=== PATIENT | female | born 1985 | race Caucasian/White ===

== ENCOUNTER 2016-11-17 16:10 | Emergency (ER) | payer OTHER ==
[~2016-11-17 16:10] MED LIST: ANAPROX DS550 MG PO; PRENATAL1 TA7 PO
[2016-11-17 17:20] LABS: BILIRUBIN NEGATIVE (NEGATIVE); BLOOD 3+ (NEGATIVE); CLARITY SL CLOUDY (CLEAR); COLOR YELLOW (YELLOW); GLUCOSE NEGATIVE (NEGATIVE); KETONE 1+ (NEGATIVE); LEUKO ESTERASE 1+ (NEGATIVE); NITRITE NEGATIVE (NEGATIVE); PROTEIN TRACE (NEGATIVE); SPECIFIC GRAVITY 1.025 (1.005-1.030); UROBILINOGEN 0.2 E.U./dl (0.2-1.0)
[2016-11-17 17:31] LABS: MUCOUS TRACE; RBC 21-30 rbc/hpf (0-2); URINE REFLEX COMMENT YES (NO); WBC 31-40 wbc/hpf (0-5)
[2016-11-17 18:09] LABS: HEMATOCRIT 38.4 % (37.0-47.0); MEAN CELL VOLUME 86.5 fl (81.0-99.0); MEAN CORPUSCULAR HGB 29.3 pg (27.0-31.0); MEAN CORPUSCULAR HGB CONC 33.9 g/dl (33.0-37.0); MEAN PLATELET VOLUME 9.5 fl (9.6-12.3); PLATELET COUNT AUTOMATED 449 10*3/uL (130-400); RED BLOOD COUNT 4.44 10*6/uL (4.10-5.10); RED CELL DISTRI WIDTH 13.9 % (0-14.5)
[2016-11-17 18:28] LABS: ALBUMIN 2.9 gm/dl (3.1-4.5); ALKALINE PHOSPHATASE 247 U/L (45-117); BILIRUBIN, TOTAL 0.3 mg/dl (0.2-1.0); BUN 15 mg/dl (7-24); CARBON DIOXIDE 17 mmol/L (21-32); CHLORIDE 108 mmol/L (98-107); EST GLOM FILT AFRICAN AMERICAN > 60 ml/min; GLUCOSE 98 mg/dL (65-99); SGOT/AST 12 IU/L (3-35); SGPT/ALT 18 U/L (12-78); SODIUM 138 mmol/L (136-145); TOTAL PROTEIN 7.4 gm/dL (6.4-8.2)
[2016-11-17 18:29] LABS: LYMPHOCYTE # 1.1 10*3/uL (1.3-4.4); NEUTROPHIL # 26.9 10*3/uL (2.3-7.9); NEUTROPHILS 96 % (47-73); TOTAL CELLS COUNTED 100 #CELLS
[2016-11-17 18:30] LABS: PLATELET SUFFICIENCY HIGH (NORMAL)
== END 2016-11-17 21:55 | disposition short-term general hospital (02) ==
LOC: ED 16:10
PROVIDERS: Nurse Practitioner Family
DX: O60.00 Preterm labor without delivery, unspecified trimester (principal)

== ENCOUNTER 2017-10-02 12:40 | Inpatient (IN) | payer OTHER ==
[~2017-10-02] VITALS: Ht 152.4 cm; Wt 80.3 kg
--- NOTE | ~2017-10-02 | PR ---
[place], [place] PROGRESS NOTE NAME: DAVID CRUZ UNIT #: [id number] ROOM: 401 DOCTOR: TAPAN FLOWER MD BIRTHDATE: [birth year] DOS: 10/04/2017 SUBJECTIVE: She has been noted comfortable at this time without any distress at this time. Shortness of breath of the patient has been improving. Coughing has been decreased as well. She was continued on antibiotic. The patient has IV cefepime and the Zithromax as well. She has not been noted symptoms of chest pain or any abdominal pain. OBJECTIVE: VITAL SIGNS: For the patient, which has been recorded was noted with a temperature as normal. Respiratory rate of the patient recorded as respiratory 20, heart rate 94, blood pressure 139/75. HEENT: Showed no new change. NECK: Supple. CARDIOVASCULAR: S1, S2 audible. LUNGS: Noted with decreased breath sounds in the lungs, noted with expiratory wheezing partially decreased from yesterday. ABDOMEN: There was no tenderness noted on abdominal exam. Chronic moderate obesity was noted. EXTREMITIES: Shows no edema. LABORATORY DATA: Culture of the sputum, noted moderate growth of Enterobacter cloacae noted sensitive to multiple antibiotics, but noted resistant to cefuroxime and Augmentin. It was also noted sensitive to fluoroquinolones. BMP of patient this morning was noted normal BUN and creatinine. Remaining electrolytes normal. CBC; WBC count severely elevated 27.2. Hemoglobin 12.3, hematocrit 35.8, platelet count of 384,000. 93% segmented neutrophils noted. IMPRESSION: Bilateral small patchy multilobar pneumonia with leukocytosis, acute exacerbation of severe bronchial asthma, leukocytosis, multifactorial secondary to steroids and underlying infection. PLAN OF TREATMENT: Start the patient on oral Levaquin 500 mg daily for the medical and pneumonia based on sensitivity results. Reduce Solu-Medrol 40 mg b.i.d. Continuation annual corticosteroids, bronchodilators, and other treatment as previously. Usual care. Supportive plan of management and care plan. [place], [place] PROGRESS NOTE NAME: DAVID CRUZ UNIT #: [id number] ROOM: 401 DOCTOR: TAPAN FLOWER MD BIRTHDATE: [birth year] TAPAN HARKINS MD CM:PNTRANS [id number] TAPAN GAR MD 10/04/17 2338 interface
--- NOTE | ~2017-10-02 | CON ---
[place], [place] REPORT OF CONSULTATION NAME: DAVID CRUZ UNIT #: [id number] ROOM: 401 DOCTOR: SHAHANA GAR MD,TAPAN BIRTHDATE: [birth year] DOS: 10/03/2017 REASON FOR CONSULTATION: Assessment of acute pneumonia and other respiratory symptoms. HISTORY OF PRESENT ILLNESS: A 32-year-old female who has known with history of bronchial asthma treated usually with the use of the antihistamine for the patient as well as short acting bronchodilators p.r.n. use. She has been monitored and managed by local physician, Dr. Catherine. She stated that she had developed severe tightness in the chest for the patient on Wednesday night. She also developed at that time some symptoms of coughing without any sputum expectoration. Significant increased shortness breath was noted for this patient. There were symptoms of chest pain. Wheezing was reported when came into the Emergency Room for assessment with significant symptoms of severe shortness of breath. She was assessed in the Emergency Room yesterday and had a CT of the chest performed as well. Currently, the patient has been admitted to the Intensive Care Unit. REVIEW OF SYSTEMS: CONSTITUTIONAL: She does complain of symptoms of fatigue and tiredness without any symptoms of fever or chills. EYES: Denies any burning, redness, or tenderness. EARS, NOSE, THROAT SYMPTOMS: Denies sore throat, hoarseness, otalgia, postnasal drainage or epistaxis. CARDIOVASCULAR: Denies angina pain, edema or pain of the lower extremity. SKIN: Denied lesions or rashes. GENITOURINARY SYMPTOMS: Dysuria, suprapubic pain, hematuria. GASTROINTESTINAL SYMPTOMS: Dysphagia, nausea, vomiting, dysphagia or any abnormal weight loss history. CENTRAL NERVOUS SYSTEM: No dizziness, headache, diplopia, syncopal episodes. Remaining systems were reviewed for the patient, they were noted all negative. PAST MEDICAL HISTORY: Reported: 1. Bronchial asthma. 2. Chronic obesity. 3. Nicotine abuse. SOCIAL HISTORY: The patient is not , has 2 children. Denies history of alcohol use or any illicit drug. Tobacco use was noted a pack of cigarettes per day from the age of [age] years old. PAST SURGICAL HISTORY: Reported none. FAMILY HISTORY: The patient's father for the patient with a homicide. The mother for the patient is living without any described significant medical illnesses as a 63 years old. HOME MEDICATIONS: Noted use of ProAir inhaler p.r.n. use and antihistamine [id number] such as Claritin. [place], [place] REPORT OF CONSULTATION NAME: DAVID CRUZ UNIT #: [id number] ROOM: 401 DOCTOR: SHAHANA GAR MD,TAPAN BIRTHDATE: [birth year] PHYSICAL EXAMINATION: GENERAL: A 32-year-old female currently noted comfortably sitting on the bed without any distress. Height of 5 feet, weight of 177 pounds, BMI 34.5. VITAL SIGNS: Normal temperature, respiratory rate of 24-18, heart rate of 106-111, blood pressure 136/48-120/53. Pulse oxygen saturation of the patient noted 4 liters nasal cannula, 98% saturation. HEENT: Moderate obesity. Head was atraumatic. Eyes nonicterus. Oral mucosa moist. CARDIOVASCULAR: S1, S2 audible. LUNGS: Noted with moderate reduction of breath sounds with diffuse expiratory wheezing. There were no crackles. ABDOMEN: Soft, nontender. CENTRAL NERVOUS SYSTEM: Cranial nerves 2-12 intact. No focal deficits. SKIN: No lesions or rashes. MUSCULOSKELETAL: No deformities. LABORATORY DATA: CBC for the patient that was done on 10/02, WBC count 24.2, hemoglobin and hematocrit normal, platelet count was elevated at 456,000, 87% segmented neutrophils. CMP yesterday on admission was noted essentially normal. The chest x-ray, which was one-view done yesterday was noted as normal. The CBC of this morning, WBC count 26.3, hemoglobin and hematocrit normal, platelet count 403,000. The CMP of the patient was noted on 10/03, glucose 132, BUN and creatinine was normal. CO2 of 20. Culture of the sputum from yesterday are noted mild growth of gram-negative bacilli and the Gram stain noted many white blood cells, moderate epithelial cells, few gram-negative bacilli, few gram-positive cocci in pairs. The CT of the chest for patient does not show any evidence of pulmonary embolism and sketchy-patchy bilateral infiltration noted in the lungs bilaterally. IMPRESSION: 1. The patient has been noted current gram-negative infection, possibly consideration for Haemophilus influenza pneumonia for this patient will be considered with acute exacerbation of bronchial asthma. 2. Chronic nicotine dependence as well and acute chronic moderate obesity as well. PLAN OF TREATMENT: The patient is currently getting IV Solu-Medrol for the patient 60 mg q.8 hours, that will be continued. Bronchodilator will be continued every 4 hours while awake. Continue DVT prophylaxis. Monitor results of sputum culture. The patient was getting Zithromax and Rocephin. Instead of the Rocephin to the patient, the patient will be started on the cefepime for this patient until the culture results will be clearly known. Other medical treatment to be continued as well. She was also started on rather medium dose of any corticosteroids long-term medical management of bronchial asthma. Nicotine replacement patches were also ordered for this patient to help overcome any nicotine withdrawal. Smoking cessation has been discussed in detail with the patient. [place], [place] REPORT OF CONSULTATION NAME: DAVID CRUZ UNIT #: [id number] ROOM: [facility] DOCTOR: TAPAN FLOWER MD BIRTHDATE: [birth year] TAPAN HARKINS MD CM:CONSTR:REPORT OF CONSULTATION 1421 10/04/17 0156 interface
[2017-10-02 12:41] VITALS: BP 135/70
[2017-10-02 13:22] LABS: HEMATOCRIT 42.5 % (37.0-47.0); HEMOGLOBIN 14.5 g/dl (12.0-16.0); MEAN CELL VOLUME 87.1 fl (81.0-99.0); MEAN CORPUSCULAR HGB 29.7 pg (27.0-31.0); MEAN CORPUSCULAR HGB CONC 34.1 g/dl (33.0-37.0); MEAN PLATELET VOLUME 9.3 fl (9.6-12.3); PLATELET COUNT AUTOMATED 456 10*3/uL (130-400); RED BLOOD COUNT 4.88 10*6/uL (4.10-5.10); RED CELL DISTRI WIDTH 14.1 % (0-14.5); WHITE BLOOD COUNT 24.2 10*3/uL (4.8-10.8)
[2017-10-02 13:36] LABS: ALBUMIN 4.1 gm/dl (3.1-4.5); ALKALINE PHOSPHATASE 116 U/L (45-117); BUN 8 mg/dl (7-24); CHLORIDE 108 mmol/L (98-107); CREATININE 0.77 mg/dL (0.55-1.02); SGOT/AST 13 IU/L (3-35); SGPT/ALT 30 U/L (12-78); SODIUM 139 mmol/L (136-145); TOTAL PROTEIN 7.9 gm/dL (6.4-8.2)
[2017-10-02 13:40] LABS: ATYPICAL LYMPHS 1 % (0-0); PLATELET SUFFICIENCY HIGH (NORMAL); TOTAL CELLS COUNTED 100 #CELLS
[2017-10-02 14:10] VITALS: BP 166/71
--- NOTE | 2017-10-02 14:44 | NUR ---
PATIENT TO CT AT THIS TIME. PATIENT GOING TO ICU [address] IS COMPLETE AND PATIENT IS RETURNED TO ED.
--- NOTE | 2017-10-02 15:07 | NUR ---
ROCPEHIN ENDED AT 1500. ZITHROMAX STARTED
[2017-10-02 15:15] VITALS: BP 136/64
--- NOTE | 2017-10-02 15:15 | NUR ---
A 32, admitted to ICCU, under the services of CHAO Mitchell DO with a diagnosis of SEVERE SEPSIS, PNEUMONIA. Chief complaint is SENT FROM [facility] DUE TO LOW POX. Patient arrived via stretcher from ER. Monitor applied. Initial assessment completed. Vital signs taken and recorded. CHAO MITCHELL DO notified of admission to the unit. Orders received. See assessment for past medical history, medications and allergies. Patient and/or family oriented to unit. [facility] ICCU visitation policy reviewed. Clothing/patient valuable form completed. JENNIFER MCKENZIE
[2017-10-02] MEDS ORDERED: VENTOLIN 02.5 MG/3 M INH (15:33)
[2017-10-02 16:00] VITALS: BP 136/48; BP 136/64
--- NOTE | 2017-10-02 16:40 | NUR ---
MESSAGE LEFT ON DR. HARKINS'S ANSWERING SERVICE REGARDING CONSULT.
[2017-10-02 20:00] VITALS: BP 127/59
--- NOTE | 2017-10-02 20:00 | NUR ---
PT STATES BREATHING BETTER. BOXED LUNCH AND ICE CREAM GIVEN TO PT PER REQUEST. VSS. PULSE OX 95% ON NC4. CONTINUES TO HAVE I&E WHEEZES THROUGHOUT WITH RR 19/MIN.
--- NOTE | 2017-10-02 23:22 | NUR ---
RESTORIL GIVEN AT 2109 FOR SLEEP EFFECTIVE...PT DOZING.
[2017-10-03] VITALS: BP 132/64
[2017-10-03 04:00] VITALS: BP 148/48
[2017-10-03 04:26] LABS: HEMATOCRIT 38.4 % (37.0-47.0); HEMOGLOBIN 13.1 g/dl (12.0-16.0); MEAN CELL VOLUME 87.1 fl (81.0-99.0); MEAN CORPUSCULAR HGB 29.7 pg (27.0-31.0); MEAN CORPUSCULAR HGB CONC 34.1 g/dl (33.0-37.0); MEAN PLATELET VOLUME 9.1 fl (9.6-12.3); PLATELET COUNT AUTOMATED 403 10*3/uL (130-400); RED BLOOD COUNT 4.41 10*6/uL (4.10-5.10); RED CELL DISTRI WIDTH 14.2 % (0-14.5); WHITE BLOOD COUNT 26.3 10*3/uL (4.8-10.8)
[2017-10-03 04:45] LABS: ALBUMIN 3.3 gm/dl (3.1-4.5); BUN 7 mg/dl (7-24); CHLORIDE 113 mmol/L (98-107); CHOLESTEROL 118 mg/dL (<200); CREATININE 0.63 mg/dL (0.55-1.02); PHOSPHOROUS 1.4 mg/dL (2.5-4.9); POTASSIUM 3.7 mmol/L (3.5-5.1); SGOT/AST 8 IU/L (3-35); SGPT/ALT 24 U/L (12-78); SODIUM 141 mmol/L (136-145); TRIGLYCERIDES 46 mg/dl (<150); VLDL CHOLESTEROL 9 mg/dL (6-40)
[2017-10-03 04:46] LABS: ALKALINE PHOSPHATASE 91 U/L (45-117); PLATELET SUFFICIENCY HIGH (NORMAL); TOTAL CELLS COUNTED 100 #CELLS
[2017-10-03 04:52] LABS: FREE T4 1.42 ng/dl (0.76-1.46); HDL CHOLESTEROL 56 mg/dl (40-60); LDL CHOLESTEROL 53 mg/dL (9-159); THYROID STIM HORMONE (HS) 0.426 uIU/ml (0.358-4.75)
[2017-10-03 08:00] VITALS: BP 128/68
[2017-10-03 12:00] VITALS: BP 120/53
--- NOTE | 2017-10-03 15:12 | NUR ---
ASSUMED CARE OF PT. PT IN BED, SITTING UPRIGHT AND COUGHING. LUNGS ARE DIMINISHED WITH WHEEZING NOTED. PT DENIES CHEST PAIN, N/V/D. NO EDEMA NOTED. FLUIDS GOING. PT HAS NO COMPLAINTS AT THIS TIME.
[2017-10-03 16:00] VITALS: BP 133/56
--- NOTE | 2017-10-03 18:32 | NUR ---
PT IN BED EYES CLOSED, TV ON. NO APPARENT DISTRESS AT THIS TIME.
[2017-10-03 20:00] VITALS: BP 139/86
[2017-10-04] VITALS: BP 129/64
[2017-10-04 07:28] LABS: HEMATOCRIT 35.8 % (37.0-47.0); HEMOGLOBIN 12.3 g/dl (12.0-16.0); MEAN CORPUSCULAR HGB 30.2 pg (27.0-31.0); MEAN CORPUSCULAR HGB CONC 34.4 g/dl (33.0-37.0); MEAN PLATELET VOLUME 9.5 fl (9.6-12.3); PLATELET COUNT AUTOMATED 384 10*3/uL (130-400); RED BLOOD COUNT 4.07 10*6/uL (4.10-5.10); RED CELL DISTRI WIDTH 14.6 % (0-14.5); WHITE BLOOD COUNT 27.2 10*3/uL (4.8-10.8)
[2017-10-04 07:40] LABS: BUN 10 mg/dl (7-24); CHLORIDE 112 mmol/L (98-107); POTASSIUM 3.7 mmol/L (3.5-5.1); SODIUM 143 mmol/L (136-145)
[2017-10-04 08:00] VITALS: BP 139/75
[2017-10-04 08:05] LABS: PLATELET SUFFICIENCY NORMAL (NORMAL); TOTAL CELLS COUNTED 100 #CELLS
--- NOTE | 2017-10-04 09:00 | NUR ---
[employer] in to talk to patient. Patient states lives at home with . There are few steps in the home. Physician: dr batista Pharmacy: [facility] services: none Patient's level of ADLs: INDEPENDENT Patient has working utilities: all working DME: none Follow-up physician's appointment after d/c: will be made by hospitalist nurse director upon discharge Does patient want to access PORTAL?: no Discharge plan discussed with patient, patient lives at home, is independent in adls and ambulation, patient states she will be going back home and denies any home needs. ARACELIS PORTER
[2017-10-04 11:52] VITALS: BP 112/55
[2017-10-04] MEDS ORDERED: LEVAQUIN500 M2 PO (12:47)
[2017-10-04] MEDS ORDERED: NICODERM T (12:47)
[2017-10-04] MEDS ORDERED: DOXYCYCLINE100 MG PO (12:48)
[2017-10-04] MEDS ORDERED: VITAMIN D5000 UNI1 PO (12:51)
[2017-10-04] MEDS ORDERED: PREDNISONE50 MG PO (12:51)
[2017-10-04] MEDS ORDERED: NATURE'S BLEND F1 MG PO (12:51)
--- NOTE | 2017-10-04 14:52 | NUR ---
Discharge instructions reviewed with patient/family. Patient receptive and verbalizes understanding. Follow-up care arranged. Written instructions given to patient/family. CELENA OWEN
== END 2017-10-04 14:52 | disposition home or self-care (01) | DRG 871 ==
LOC: ED 12:40 → EDHOLD 14:11 → 4E 14:11 → ICCU 14:23 → 4E 10-03 14:41
PROVIDERS: Hospitalist; Nurse Practitioner Family; ADMIT Internal Medicine
DX: A41.9 Sepsis, unspecified organism (principal); J96.01 Acute respiratory failure with hypoxia; J18.1 Lobar pneumonia, unspecified organism; J45.21 Mild intermittent asthma with (acute) exacerbation; E83.39 Other disorders of phosphorus metabolism; R65.20 Severe sepsis without septic shock; R03.0 Elevated blood-pressure reading, without diagnosis of hypertension; F17.210 Nicotine dependence, cigarettes, uncomplicated; T38.0X5A Adverse effect of glucocorticoids and synthetic analogues, initial encounter; E53.8 Deficiency of other specified B group vitamins; B96.89 Other specified bacterial agents as the cause of diseases classified elsewhere; Y92.89 Other specified places as the place of occurrence of the external cause; Z79.899 Other long term (current) drug therapy; Z84.89 Family history of other specified conditions; Z71.6 Tobacco abuse counseling; Z68.34 Body mass index [BMI] 34.0-34.9, adult; E66.8 Other obesity

== ENCOUNTER 2017-12-19 06:43 | Inpatient (IN) | payer SELFPAY ==
[~2017-12-19] VITALS: Ht 152.4 cm; Wt 82.6 kg
[2017-12-19] VITALS (7 sets, daily range): BP systolic 95–135; BP diastolic 52–82
--- NOTE | ~2017-12-19 | CON ---
[place], [place] REPORT OF CONSULTATION NAME: [id number] UNIT #: [id number] ROOM: 403 DOCTOR: SHAHANA GAR MDTAPAN BIRTHDATE: [birth year] DOS: 12/22/2017 PULMONARY CONSULTATION, EVALUATION AND MANAGEMENT CONSULTATION REQUESTED BY: Hospitalist Service. REASON FOR CONSULTATION: Assessment for the acute pneumonia and ongoing acute respiratory complaints. HISTORY OF PRESENT ILLNESS: This is a 32-year-old white female who has been admitted to the hospital under care of the hospitalist service, 12/19/2017. She has been treated for acute exacerbation of chronic obstructive pulmonary disease and acute bronchitis. The cultures of the sputum of the patient has been noted abnormal today as isolation of Enterobacter cloacae light growth and moderate growth of gram-positive cocci for this patient with pending identification results. She stated having increased respiratory symptom for the patient, which has been ongoing for the past few days for this patient prior to the hospitalization. She had been admitted to the hospital, currently treated with corticosteroids, bronchodilators, and the antibiotic. The symptom has been noted with partial reduction, still noted with symptoms of dyspnea with exertion, cough, which has been noted mostly nonproductive with minimal sputum expectoration, wheezing and chest tightness. Denies symptoms of chest pain. Denies symptoms of hemoptysis. REVIEW OF SYSTEMS: CONSTITUTIONAL: Fatigue and tiredness reported. Denies symptoms of fever or chills. EYES: Denies any burning, redness, tenderness. EARS, NOSE, THROAT SYMPTOMS: Denies sore throat, hoarseness, otalgia, postnasal drainage or epistaxis. CARDIOVASCULAR: Denies edema or pain of the lower extremities. GASTROINTESTINAL SYMPTOMS: No dysphagia, nausea, vomiting, diarrhea, abdominal pain, hematemesis, melena or hematochezia. SKIN: Denies lesions or rashes. MUSCULOSKELETAL SYMPTOMS: Denies acute joint pain or deformities. CENTRAL NERVOUS SYSTEM: No dizziness, headache, diplopia, syncopal episodes. Remaining systems were reviewed. They were noted all negative. PAST MEDICAL HISTORY: 1. Known with history of bronchial asthma, unknown severity at this time. 2. Chronic obesity. 3. Nicotine dependence. PAST SURGICAL HISTORY: Noted none. SOCIAL HISTORY: The patient has 2 children, single. Denies any history of alcohol use, illicit drug use. Tobacco use noted 1 pack of cigarettes per day from the age of [age] years old where active tobacco use was noted until hospitalization. [place], [place] REPORT OF CONSULTATION NAME: DAVID CRUZ UNIT #: [id number] ROOM: 403 DOCTOR: TAPAN FLOWER MD BIRTHDATE: [birth year] FAMILY HISTORY: The patient's father from homicide. Mother is living, 63-year-old without any known medical illnesses. MEDICATIONS: Current administered medication were noted as use of Solu-Medrol 60 mg IV b.i.d., chlorpheniramine 4 mg p.o. daily, DuoNeb q.4h., azithromycin and Rocephin. DRUG ALLERGIES: The patient noted no known drug allergies. PHYSICAL EXAMINATION: GENERAL: A 32-year-old female who has been currently noted to be awake and alert, sitting on the bed without any acute distress. Height were recorded as 5 feet, weight of 82 kilograms, BMI 35.5. VITAL SIGNS: The patient was noted as normal temperature since admission, respiratory rate range between 22-18, heart rate of 111 to 70. The blood pressure 121/74-116/56, pulse oxygen saturation of the patient on 2-liter nasal cannula was 95% saturation. HEENT: Examination shows head was atraumatic. Eyes nonicterus. NECK: Supple. CARDIOVASCULAR: S1, S2 audible. LUNGS: Noted general reduction in the breath sounds with moderate expiratory wheezing, no crackles. ABDOMEN: Soft with moderate obesity, nontender, bowel sounds present. SKIN: Visible skin, no lesions or rashes. MUSCULOSKELETAL: Without any deformities. CENTRAL NERVOUS SYSTEM: The patient was noted cranial nerves 2-12 intact. No focal deficit. LABORATORY DATA: CBC of the patient on admission 12/19/2017, WBC count 18.2, hemoglobin and hematocrit normal, platelet count was normal. The lactic acid 1.6 on 12/19/2017. PT/PTT of the patient on 12/19/2017 was noted as normal. Arterial blood gas of the patient, pH of 7.42, pCO2 of 31, pO2 of 50.2 on room air. Influenza A and B, nasal washing antigen, 12/19/2017 was negative. CMP of the patient of 12/19/2017, normal BUN, creatinine and other electrolytes and LFTs. CBC on 12/20/2017, WBC count 20.7, hemoglobin and hematocrit normal. The BMP of the patient, glucose 127, normal BUN and creatinine. Blood culture from the 12/19/2017 showed no bacterial growth. CBC of the patient of 12/22/2017, WBC count 13.2, hemoglobin and hematocrit normal, platelet count was normal. The BMP of the patient of 12/22/2017, normal BUN and creatinine. The culture of the sputum for this patient that was done from 12/19/2017 was noted with a gram-negative diplococci for the patient with pending identification and sensitivity, suspicion of Branhamella catarrhalis. The gram-negative infection noted sensitive to the cefepime, ceftazidime, Invanz, resistant to fluoroquinolones and sensitive to the meropenem, tigecycline, Bactrim and others. CT scan of the chest for the patient that was done on 12/19/2017 was reviewed, shows evidence of patchy ground-glass opacity and infiltration in the lungs predominantly in the upper lobe for this patient was noted, larger area noted in the left upper lobe with infiltration was present in the lower lungs bilaterally, almost all of the subsegments were involved. [place], [place] REPORT OF CONSULTATION NAME: DAVID CRUZ UNIT #: [id number] ROOM: 403 DOCTOR: BIANKA FLOWER MDM BIRTHDATE: [birth year] IMPRESSION: 1. The patient who has been currently admitted to the hospital was suspected with acute pneumonia for the patient with area of subsegmental atelectasis with ground-glass opacity for this patient. The etiology of ground-glass opacity would be considered noninfectious in origin. 2. Suspicion of mucus impaction to major airways causing certain ground-glass opacity with the possibility of subsegmental atelectasis, endobronchial tree as well. 3. Chronic nicotine dependence. 4. Ongoing acute exacerbation of bronchial asthma for the patient remains the same. Current resistant infection, Enterobacter cloacae was isolated to current antibiotic and noted ineffective to control and treat the current problem. 5. Possible isolation of Branhamella catarrhalis was suspected as well with pending final culture results. PLAN OF MANAGEMENT: Based on the current culture results at this time, the patient will be started on intravenous meropenem. Discontinue the other antibiotics at this time. Monitor results of the patient, the other culture results prior to making any other changes in the treatment. Continue current dose of corticosteroids, bronchodilators administration. Nicotine replacement patches in case of any nicotine withdrawal could be used as well. The BAL specimen for the patient will be obtained, certain subsegment to assess the isolation of organisms as well. Also, the mucus plug will be removed. The bronchoscopy procedure has been discussed with the patient after description of risks and the benefit, the patient is agreeable for the procedure, which was scheduled to be done in the morning. N.p.o. past midnight status will be achieved. Other supportive therapy, plan of management and care. Usual treatment and other plan of therapy for the patient as well. Supportive care and other medical management, plan of care. Thank you for allowing me to participate in the care of this patient. TAPAN HARKINS MD CM:CONSTR:REPORT OF CONSULTATION 1346 12/23/17 0136 interface
--- NOTE | ~2017-12-19 | PR ---
[place], [place] PROGRESS NOTE NAME: DAVID CRUZ UNIT #: [id number] ROOM: 403 DOCTOR: TAPAN FLOWER MD BIRTHDATE: [birth year] DOS: 12/24/2017 PULMONARY PROGRESS NOTE SUBJECTIVE: The patient was noted without any ongoing acute new respiratory complaints at this time. Coughing has improved significantly after the bronchoscopy. Denies symptoms of chest pain or any abdominal pain. The shortness of breath has been improving. OBJECTIVE: VITAL SIGNS: For the patient, which were recorded shows a normal temperature, respiratory rate 20, heart rate 103, blood pressure 115/59. Pulse oxygen saturation on room air 94% saturation. HEENT: Examination shows no acute change. NECK: Supple. CARDIOVASCULAR: S1, S2 audible. LUNGS: Minimal wheezing, no crackles. ABDOMEN: Soft, nontender and obese. EXTREMITIES: Without any edema. LABORATORY DATA: CBC: WBC count 17,000, normal hemoglobin and hematocrit. Preliminary culture bronchial washing showed normal eric. Gram stain of the patient, few white blood cells and no organisms seen. The cell count differential of the patient was reported as 92% macrophages, 4% eosinophils, 3% lymphocytes, 1% neutrophils. The chest x-ray of the patient that was done this morning showed reduction of pulmonary infiltration. IMPRESSION: 1. Resolving acute pneumonia for the patient with possibility of interstitial pneumonitis noninfection would be also considered. 2. Resolving acute exacerbation of bronchial asthma as well. 3. Chronic nicotine dependence. PLAN OF TREATMENT: The patient could be discharged home today on oral antibiotics as previously noted positive culture for Staph aureus for this patient for the treatment of the Staphylococcus aureus pneumonia. Monitor current culture results. Continue other supportive therapy, plan of management. Absolute abstinence of tobacco use was recommended. Usual care, other supportive therapy, plan of management and care. [place], [place] PROGRESS NOTE NAME: DAVID CRUZ UNIT #: [id number] ROOM: 403 DOCTOR: TAPAN FLOWER MD BIRTHDATE: [birth year] TAPAN HARKINS MD CM:PNTRANS [id number] TAPAN GAR MD 12/25/17 0017 interface
--- NOTE | ~2017-12-19 | PROC NOTE ---
[place], [place] PROCEDURE NOTE NAME: DAVID CRUZ UNIT #: [id number] ROOM: 403 DOCTOR: SHAHANA GAR MD,TAPAN BIRTHDATE: [birth year] DOS: 12/23/2017 PREOPERATIVE DIAGNOSIS: The patient has bilateral ground glass opacity, the patient ongoing severe cough. The patient now resolving current medical management of bronchial asthma exacerbation. POSTOPERATIVE DIAGNOSES: 1. Removal of the multiple plugs and mucus in bronchial tree bilaterally. 2. Completion of the BAL for this patient from the left upper lobe subsegment. PROCEDURE DESCRIPTION: Informed consent obtained for the patient. She was brought to the OR and placed in supine position. Conscious sedation administered by the Anesthesia Department. After achieving appropriate sedation. The airway introduced into the mouth. Bronchoscope advanced to the airway into laryngeal area. Epiglottis and vocal cords were seen. Bronchoscope advanced to the vocal cord and tracheal lumen. Tracheal lumen was identified. The patient with moderate amount of thick mucus secretion with minimal purulent secretions. All the secretions suctioned of the patient with the help of normal saline wash, sent for appropriate cultures. The procedure was well tolerated by the patient without any difficulty. The BAL specimen was also obtained from the patient's left upper lobe subsegment. Based on the bronchoscopy, no change in treatment will be necessary. TAPAN HARKINS MD CM:PROCNOTE:PROCEDURE NOTE 1239 [id number] TAPAN GAR MD
--- NOTE | ~2017-12-19 | EKG ---
[place], [place] ELECTROCARDIOGRAM REPORT NAME: DAVID CRUZ UNIT #: [id number] ROOM: 403 DOCTOR: SHAHANA GAR MD,TAPAN BIRTHDATE: [birth year] DOS: 12/22/2017 Electrocardiogram done on 12/22/2017 at 12:06 p.m. Sinus tachycardia noted, heart rate 103 beats per minute. No other abnormalities were noted on electrocardiogram. TAPAN HARKINS MD CM:EKGRPT:ELECTROCARDIOGRAM REPORT 1228 1237 TAPAN GAR MD
--- NOTE | ~2017-12-19 | PR ---
[place], [place] PROGRESS NOTE NAME: DAVID CRUZ UNIT #: [id number] ROOM: 403 DOCTOR: TAPAN FLOWER MD BIRTHDATE: [birth year] DOS: 12/23/2017 SUBJECTIVE: She is n.p.o. past midnight bronchoscopy, still noted cough which has now been resolving. There were no symptoms of chest pain, abdominal pain, and symptoms of nausea or vomiting. The patient denies symptoms of abdominal pain. Denies symptoms of headache or diplopia. Denies edema or pain in lower extremities. Remaining systems were reviewed. They were noted all negative. Remaining systems were reviewed to be negative. OBJECTIVE: VITAL SIGNS: Normal temperature, respiratory 14, heart rate of 111, blood pressure 121/55. The pulse oxygen saturation recorded as 93% on room air and 2 liters 95% earlier. HEENT: Moderate obesity. Head was atraumatic. Eye nonicterus. NECK: Supple. CARDIOVASCULAR: S1, S2 audible. Moderate decreased breath sounds with expiratory wheezing scattered. ABDOMEN: Soft, nontender, bowel sounds present. EXTREMITIES: Without any acute edema. CENTRAL NERVOUS SYSTEM: Nonfocal. SKIN: Visible skin, no lesions or rashes. MUSCULOSKELETAL: Without any acute deformities. LABORATORY DATA: Final culture results were noted with evidence of moderate growth of Staph aureus and light growth of Enterobacter cloacae as the final results. The Staph aureus was noted with methicillin-sensitive sensitive species. Urine test was noted negative today. The PT, PTT yesterday were noted as normal. IMPRESSION: 1. The patient has been noted bilateral patchy interstitial infiltration. Ground glass opacities with ongoing acute exacerbation of bronchial asthma, ____ sputum Staph aureus and Klebsiella pneumoniae versus colonization versus true pulmonary infection or pneumonia. 2. Chronic obesity. 3. History of nicotine dependence. PLAN OF TREATMENT: Continuation of bronchodilators, oxygen supplementation, and current antibiotics. Change in antibiotic based on the new culture results and bronchial washings. Any modification in treatment if necessary, will be ordered after bronchoscopy as well. Other treatment, the patient had previously ongoing will be continued without any changes. [place], [place] PROGRESS NOTE NAME: DAVID CRUZ UNIT #: [id number] ROOM: 403 DOCTOR: AZIZ TAPAN GAR MD BIRTHDATE: [birth year] TAPAN HARKINS MD CM:CHARLEEN [id number] TAPAN GAR MD 12/23/17 1714 interface
[~2017-12-19 06:43] MED LIST changes: +DOXYCYCLINE100 MG PO; +LEVAQUIN500 M2 PO; +NATURE'S BLEND F1 MG PO; +NICODERM T; +PREDNISONE50 MG PO; +VENTOLIN 02.5 MG/3 M INH; +VITAMIN D5000 UNI1 PO
[2017-12-19 07:26] LABS: BASO # 0.1 10*3/uL (0.0-0.1); BASO % 0.5 % (0.0-1.0); EOS # 1.1 10*3/uL (0.0-0.4); HEMATOCRIT 41.6 % (37.0-47.0); HEMOGLOBIN 13.7 g/dl (12.0-16.0); LYMPH # 1.3 10*3/uL (1.3-4.4); LYMPH % 7.1 % (27.0-41.0); MEAN CELL VOLUME 89.1 fl (81.0-99.0); MEAN CORPUSCULAR HGB 29.3 pg (27.0-31.0); MEAN CORPUSCULAR HGB CONC 32.9 g/dl (33.0-37.0); MEAN PLATELET VOLUME 9.6 fl (9.6-12.3); MONO # 0.8 10*3/uL (0.1-1.0); MONO % 4.5 % (3.0-9.0); NEUT # 14.8 10*3/uL (2.3-7.9); NEUT % 81.3 % (47.0-73.0); PLATELET COUNT AUTOMATED 335 10*3/uL (130-400); RED BLOOD COUNT 4.67 10*6/uL (4.10-5.10); RED CELL DISTRI WIDTH 13.9 % (0-14.5); WHITE BLOOD COUNT 18.2 10*3/uL (4.8-10.8)
[2017-12-19 07:41] LABS: ACT PARTIAL THROMBO TIME 25.1 SECONDS (20.8-31.5)
[2017-12-19 07:43] LABS: ALBUMIN 3.7 gm/dl (3.1-4.5); ALKALINE PHOSPHATASE 118 U/L (45-117); BUN 12 mg/dl (7-24); CHLORIDE 110 mmol/L (98-107); POTASSIUM 3.7 mmol/L (3.5-5.1); SGOT/AST 17 IU/L (3-35); SGPT/ALT 24 U/L (12-78); SODIUM 143 mmol/L (136-145); TOTAL PROTEIN 7.4 gm/dL (6.4-8.2)
[2017-12-19 07:43] LABS: ABG BASE EXCESS -2.9 mmol/L (-2.0-2.0); ABG HCO3 20.3 mmol/l (22-26); ABG O2 SATURATION 86.9 % (95-97); ARTERIAL BLOOD GAS PCO2 31.6 mmHg (35-45); ARTERIAL BLOOD GAS PH 7.422 (7.35-7.45); ARTERIAL BLOOD GAS PO2 50.2 mmHg (80-90)
[2017-12-19] MEDS ORDERED: ALLER-CHLOR4 MG PO (09:08)
[2017-12-20] VITALS: BP 126/61
[2017-12-20 07:08] LABS: BASO % 0.1 % (0.0-1.0); HEMATOCRIT 36.8 % (37.0-47.0); HEMOGLOBIN 12.5 g/dl (12.0-16.0); LYMPH % 9.7 % (27.0-41.0); MEAN CELL VOLUME 89.1 fl (81.0-99.0); MEAN CORPUSCULAR HGB 30.3 pg (27.0-31.0); MEAN PLATELET VOLUME 9.9 fl (9.6-12.3); MONO # 1.2 10*3/uL (0.1-1.0); MONO % 5.9 % (3.0-9.0); NEUT # 17.3 10*3/uL (2.3-7.9); NEUT % 83.7 % (47.0-73.0); PLATELET COUNT AUTOMATED 362 10*3/uL (130-400); RED BLOOD COUNT 4.13 10*6/uL (4.10-5.10); RED CELL DISTRI WIDTH 14.1 % (0-14.5); WHITE BLOOD COUNT 20.7 10*3/uL (4.8-10.8)
[2017-12-20 07:40] LABS: BUN 9 mg/dl (7-24); CHLORIDE 111 mmol/L (98-107); CHOLESTEROL 137 mg/dL (<200); CREATININE 0.75 mg/dL (0.55-1.02); HDL CHOLESTEROL 53 mg/dl (40-60); LDL CHOLESTEROL 67 mg/dL (9-159); PHOSPHOROUS 2.9 mg/dL (2.5-4.9); POTASSIUM 3.5 mmol/L (3.5-5.1); SODIUM 141 mmol/L (136-145); TRIGLYCERIDES 84 mg/dl (<150); VLDL CHOLESTEROL 17 mg/dL (6-40)
[2017-12-20 07:47] LABS: THYROID STIM HORMONE (HS) 0.897 uIU/ml (0.358-4.75)
[2017-12-20 07:57] LABS: VITAMIN D, 25-HYDROXY 9.3 ng/mL (30-100)
[2017-12-20 08:00] VITALS: BP 118/50
[2017-12-20 12:00] VITALS: BP 100/60; BP 143/62
[2017-12-20 16:00] VITALS: BP 133/47
[2017-12-20 20:04] VITALS: BP 126/59
[2017-12-21] VITALS: BP 116/46
[2017-12-21 05:48] LABS: BASO % 0.1 % (0.0-1.0); HEMATOCRIT 36.8 % (37.0-47.0); HEMOGLOBIN 12.2 g/dl (12.0-16.0); LYMPH # 1.8 10*3/uL (1.3-4.4); LYMPH % 9.7 % (27.0-41.0); MEAN CELL VOLUME 88.9 fl (81.0-99.0); MEAN CORPUSCULAR HGB 29.5 pg (27.0-31.0); MEAN CORPUSCULAR HGB CONC 33.2 g/dl (33.0-37.0); MEAN PLATELET VOLUME 9.8 fl (9.6-12.3); MONO % 5.4 % (3.0-9.0); NEUT # 15.6 10*3/uL (2.3-7.9); NEUT % 84.3 % (47.0-73.0); PLATELET COUNT AUTOMATED 377 10*3/uL (130-400); RED BLOOD COUNT 4.14 10*6/uL (4.10-5.10); RED CELL DISTRI WIDTH 14.2 % (0-14.5); WHITE BLOOD COUNT 18.5 10*3/uL (4.8-10.8)
[2017-12-21 05:52] LABS: BUN 11 mg/dl (7-24); CHLORIDE 109 mmol/L (98-107); CREATININE 0.64 mg/dL (0.55-1.02); POTASSIUM 3.8 mmol/L (3.5-5.1); SODIUM 140 mmol/L (136-145)
[2017-12-21 08:00] VITALS: BP 118/78
[2017-12-21 12:00] VITALS: BP 120/74
[2017-12-21 16:00] VITALS: BP 114/59
[2017-12-21 20:00] VITALS: BP 114/65
[2017-12-22 00:12] VITALS: BP 116/56
[2017-12-22 07:22] LABS: BASO % 0.2 % (0.0-1.0); EOS % 0.3 % (1.0-4.0); HEMATOCRIT 39.3 % (37.0-47.0); HEMOGLOBIN 12.9 g/dl (12.0-16.0); LYMPH # 2.1 10*3/uL (1.3-4.4); LYMPH % 16.3 % (27.0-41.0); MEAN CELL VOLUME 88.7 fl (81.0-99.0); MEAN CORPUSCULAR HGB 29.1 pg (27.0-31.0); MEAN CORPUSCULAR HGB CONC 32.8 g/dl (33.0-37.0); MEAN PLATELET VOLUME 9.6 fl (9.6-12.3); MONO # 0.6 10*3/uL (0.1-1.0); MONO % 4.7 % (3.0-9.0); NEUT # 10.3 10*3/uL (2.3-7.9); NEUT % 77.9 % (47.0-73.0); PLATELET COUNT AUTOMATED 383 10*3/uL (130-400); RED BLOOD COUNT 4.43 10*6/uL (4.10-5.10); WHITE BLOOD COUNT 13.2 10*3/uL (4.8-10.8)
[2017-12-22 07:54] LABS: CHLORIDE 107 mmol/L (98-107); POTASSIUM 3.5 mmol/L (3.5-5.1); SODIUM 141 mmol/L (136-145)
[2017-12-22 07:58] LABS: BUN 17 mg/dl (7-24); CREATININE 0.84 mg/dL (0.55-1.02)
[2017-12-22 08:00] VITALS: BP 120/70
[2017-12-22 12:00] VITALS: BP 121/74
[2017-12-22 12:10] LABS: ACT PARTIAL THROMBO TIME 21.1 SECONDS (20.8-31.5); INTERNATIONAL NORM RATIO 0.9 (2.0-3.5)
[2017-12-22 16:00] VITALS: BP 99/57
[2017-12-22 20:00] VITALS: BP 122/64
[2017-12-23] VITALS (8 sets, daily range): BP systolic 109–133; BP diastolic 54–71
[2017-12-23 11:01] LABS: BF LYMPHOCYTES 3 %; BF MACROPHAGES 92 %; BF NEUTROPHILS 1 %
[2017-12-24] VITALS: BP 128/68
[2017-12-24 07:23] LABS: BASO % 0.1 % (0.0-1.0); EOS % 0.1 % (1.0-4.0); HEMATOCRIT 39.8 % (37.0-47.0); HEMOGLOBIN 13.3 g/dl (12.0-16.0); LYMPH # 2.2 10*3/uL (1.3-4.4); MEAN CORPUSCULAR HGB 29.8 pg (27.0-31.0); MEAN CORPUSCULAR HGB CONC 33.4 g/dl (33.0-37.0); MEAN PLATELET VOLUME 9.4 fl (9.6-12.3); MONO # 0.7 10*3/uL (0.1-1.0); MONO % 4.1 % (3.0-9.0); NEUT # 13.8 10*3/uL (2.3-7.9); NEUT % 81.3 % (47.0-73.0); PLATELET COUNT AUTOMATED 400 10*3/uL (130-400); RED BLOOD COUNT 4.47 10*6/uL (4.10-5.10); RED CELL DISTRI WIDTH 13.5 % (0-14.5)
[2017-12-24 08:00] VITALS: BP 118/66
[2017-12-24 12:00] VITALS: BP 115/59
[2017-12-24] MEDS ORDERED: PREDNISONE10 MG PO (12:43)
[2017-12-24] MEDS ORDERED: AUGMENTIN 875875 MG PO (12:43)
[2017-12-24 15:08] LABS: ACID FAST SMEAR Negative (.); ACID FAST SPEC PROCESSING Concentration (.)
== END 2017-12-24 13:48 | disposition home or self-care (01) | DRG 853 ==
LOC: ED 06:43 → 4E 08:09 → EDHOLD 08:09 → 4E 08:21
PROVIDERS: Internal Medicine; Internal Medicine Critical Care Medicine; Student in an Organized Health Care Education/Training Program
PROC: 0BC38ZZ Extirpation of Matter from Right Main Bronchus, Via Natural or Artificial Opening Endoscopic (ICD-10-PCS; principal; 2017-12-23)
PROC: 0BCB8ZZ Extirpation of Matter from Left Lower Lobe Bronchus, Via Natural or Artificial Opening Endoscopic (ICD-10-PCS; principal; 2017-12-23)
PROC: 0BC68ZZ Extirpation of Matter from Right Lower Lobe Bronchus, Via Natural or Artificial Opening Endoscopic (ICD-10-PCS; principal; 2017-12-23)
PROC: 0BC58ZZ Extirpation of Matter from Right Middle Lobe Bronchus, Via Natural or Artificial Opening Endoscopic (ICD-10-PCS; principal; 2017-12-23)
PROC: 0BC88ZZ Extirpation of Matter from Left Upper Lobe Bronchus, Via Natural or Artificial Opening Endoscopic (ICD-10-PCS; principal; 2017-12-23)
PROC: 0BC98ZZ Extirpation of Matter from Lingula Bronchus, Via Natural or Artificial Opening Endoscopic (ICD-10-PCS; principal; 2017-12-23)
PROC: 0B9G8ZX Drainage of Left Upper Lung Lobe, Via Natural or Artificial Opening Endoscopic, Diagnostic (ICD-10-PCS; principal; 2017-12-23)
PROC: 0BC48ZZ Extirpation of Matter from Right Upper Lobe Bronchus, Via Natural or Artificial Opening Endoscopic (ICD-10-PCS; principal; 2017-12-23)
PROC: 0BC18ZZ Extirpation of Matter from Trachea, Via Natural or Artificial Opening Endoscopic (ICD-10-PCS; principal; 2017-12-23)
PROC: 0BC78ZZ Extirpation of Matter from Left Main Bronchus, Via Natural or Artificial Opening Endoscopic (ICD-10-PCS; principal; 2017-12-23)
DX: A41.9 Sepsis, unspecified organism (principal); J18.9 Pneumonia, unspecified organism; T17.590A Other foreign object in bronchus causing asphyxiation, initial encounter; E87.8 Other disorders of electrolyte and fluid balance, not elsewhere classified; J45.901 Unspecified asthma with (acute) exacerbation; J98.11 Atelectasis; R65.20 Severe sepsis without septic shock; E66.9 Obesity, unspecified; E55.9 Vitamin D deficiency, unspecified; F17.210 Nicotine dependence, cigarettes, uncomplicated; X58.XXXA Exposure to other specified factors, initial encounter; Z71.6 Tobacco abuse counseling; Y93.89 Activity, other specified; Y92.89 Other specified places as the place of occurrence of the external cause; Z79.51 Long term (current) use of inhaled steroids; Z68.35 Body mass index [BMI] 35.0-35.9, adult

== ENCOUNTER 2018-01-11 15:04 | Inpatient (IN) | payer SELFPAY ==
[2018-01-11] VITALS (7 sets, daily range): BP systolic 110–136; BP diastolic 47–84
[~2018-01-11] VITALS: Ht 152.4 cm; Wt 89.1 kg
--- NOTE | ~2018-01-11 | CON ---
[place], [place] REPORT OF CONSULTATION NAME: [id number] UNIT #: [id number] ROOM: 511 DOCTOR: SHAHANA GAR MDTAPAN BIRTHDATE: [birth year] DOS: 01/12/2018 PULMONARY CONSULTATION, EVALUATION, AND MANAGEMENT CONSULTATION REQUESTED BY: Hospitalist services. REASON FOR CONSULTATION: To assess the patient's current pneumonia, recurrence of respiratory symptoms, and exacerbation of chronic obstructive pulmonary disease/bronchial asthma. HISTORY OF PRESENT ILLNESS: A 32-year-old white female who has been known to me from the past. The patient has been noted with history of chronic nicotine dependence, recently treated. Discharge from the hospital on 12/24/2017 as she completed the treatment for acute care with acute pneumonia and exacerbation of bronchial asthma. She has been noted history of nicotine dependence as well. Bronchoscopy was also done for the patient during last admission as well for further assessment. Multiple plaques of the mucus were cleared out. She presented back to the hospital and readmitted to the hospital on 01/11/2018 and she was complaining of symptoms of having increased shortness of breath with tightness in the chest. The patient denies symptoms of hemoptysis. The patient was seen in the [facility] yesterday and was sent to the hospital for further assessment. She was noted tachycardia on admission as well. Denies any symptoms of hemoptysis. The cough has been noted minimal without any sputum expectoration. Wheezing was reported by the patient. There were no symptoms of hemoptysis. REVIEW OF SYSTEMS: CONSTITUTIONAL SYMPTOMS: Fatigue and tiredness reported and some symptoms of fever and chills. EYES: Denies burning, redness, tenderness, discharge, or pain. EARS, NOSE, AND THROAT SYMPTOMS: No sore throat, hoarseness, otalgia, postnasal drainage, or epistaxis. CARDIOVASCULAR: Denies anginal pain, edema, or pain of lower extremity. GASTROINTESTINAL: No dysphagia, nausea, vomiting, diarrhea, abdominal pain, hematemesis, melena, dysphagia, or abnormal weight loss history. MUSCULOSKELETAL SYMPTOMS: No acute joint pain, redness, or tenderness. SKIN: Denies abnormal lesions or rashes. CENTRAL NERVOUS SYSTEM: No dizziness, headache, diplopia, or syncopal episodes. Remaining systems were reviewed. They were noted all negative. PAST MEDICAL HISTORY: 1. Uncomplicated bronchial asthma appeared to be severe. 2. Chronic obesity. 3. Nicotine dependence. 4. Recent treatment for the patient's acute pneumonia during admission in early portion of 12/2017. PAST SURGICAL HISTORY: Noted therapeutic bronchoscopy done in 12/2017. SOCIAL HISTORY: The patient is single, has 2 children. Denies history of [place], [place] REPORT OF CONSULTATION NAME: DAVID CRUZ UNIT #: [id number] ROOM: 511 DOCTOR: BIANKA FLOWER MDM BIRTHDATE: [birth year] alcohol or illicit drug use. Tobacco use noted at age of [id number], pack of cigarettes per day. Currently intermittent tobacco use was noted. FAMILY HISTORY: The patient's father from homicide. Mother is living 63-year-old without any known medical illnesses. MEDICATIONS: The current administered medications of the patient were noted as use of IV Solu-Medrol 60 mg q.8 hours, Zyrtec, vitamin D, Mucinex, Tylenol, IV vancomycin, Zosyn, and Levaquin. ALLERGIES: No known drug allergies. PHYSICAL EXAMINATION: GENERAL: This is a 32-year-old female who has been noted currently awake and alert without any acute distress. At the time of the assessment, sitting on the bed. The patient's height recorded by the nursing staff is 5 feet, weight of 196 pounds, and BMI 38.3. VITAL SIGNS: Normal temperature, respiratory rate 12-18, heart rate of 124 on admission, currently noted as 95, blood pressure 118/71-123/47. HEENT: Head was atraumatic. Eyes nonicterus. NECK: Supple. Decreased posterior pharyngeal space. CARDIOVASCULAR: S1, S2 is audible. LUNGS:. The patient was noted without any crackles, rhonchi, or wheezing at the present time. Breaths are noted mildly diminished bilaterally. ABDOMEN: Soft. Nontender. EXTREMITIES: The patient was noted with chronic obesity. There was no edema. MUSCULOSKELETAL: Without acute deformities. SKIN: Noted without any abnormal lesions or rashes. LABORATORY DATA: Lactic acid yesterday was noted 1.9. CBC of the patient on 12/11/2017, WBC count 16.3, hemoglobin and hematocrit normal, and platelet count was normal. Eosinophils was noted as normal. CMP of the patient that was done yesterday, glucose 117, BUN and creatinine was normal. Troponin normal. CBC this morning, WBC count 13.1, hemoglobin 11.7, and hematocrit 36.5. CMP this morning, glucose 179, BUN and creatinine was normal. DIAGNOSTIC DATA: Chest x-ray of the patient that was done this morning shows continued resolution previously noted, pulmonary infiltration without any acute abnormal finding noted, which is new. IMPRESSION: 1. The patient with resolving acute pneumonia. 2. Recurrent exacerbation of bronchial asthma, noncompliant with treatment. 3. Chronic nicotine dependence, is very likely reason. 4. History of chronic obesity as well. 5. Resolving previous pneumonia. PLAN OF TREATMENT: The escalating antibiotics discontinued and all the broad-spectrum intravenous antibiotics. The oral antibiotics will be used for the patient. The Solu-Medrol dose will be also decreased to 40 mg b.i.d. from [place], [place] REPORT OF CONSULTATION NAME: DAVID CRUZ UNIT #: [id number] ROOM: [facility] DOCTOR: TAPAN FLOWER MD BIRTHDATE: [birth year] 60 mg q.8 hours. Potential discharge could also occur in the home setting if necessary on oral medications. Outpatient followup recommended. Tobacco cessation was addressed with the patient again. TAPAN HARKINS MD CM:CONSTR:REPORT OF CONSULTATION 1345 01/13/18 0337 interface
[~2018-01-11 15:04] MED LIST changes: +ALLER-CHLOR4 MG PO; +AUGMENTIN 875875 MG PO; +PREDNISONE10 MG PO
[2018-01-11 16:01] LABS: BASO % 0.1 % (0.0-1.0); EOS # 0.3 10*3/uL (0.0-0.4); EOS % 1.7 % (1.0-4.0); HEMATOCRIT 36.9 % (37.0-47.0); HEMOGLOBIN 12.3 g/dl (12.0-16.0); LYMPH # 0.7 10*3/uL (1.3-4.4); LYMPH % 4.4 % (27.0-41.0); MEAN CELL VOLUME 90.7 fl (81.0-99.0); MEAN CORPUSCULAR HGB 30.2 pg (27.0-31.0); MEAN CORPUSCULAR HGB CONC 33.3 g/dl (33.0-37.0); MEAN PLATELET VOLUME 9.2 fl (9.6-12.3); MONO # 0.7 10*3/uL (0.1-1.0); MONO % 4.1 % (3.0-9.0); NEUT # 14.5 10*3/uL (2.3-7.9); NEUT % 89.3 % (47.0-73.0); PLATELET COUNT AUTOMATED 264 10*3/uL (130-400); RED BLOOD COUNT 4.07 10*6/uL (4.10-5.10); RED CELL DISTRI WIDTH 14.4 % (0-14.5); WHITE BLOOD COUNT 16.3 10*3/uL (4.8-10.8)
[2018-01-11 16:19] LABS: ALBUMIN 3.7 gm/dl (3.1-4.5); ALKALINE PHOSPHATASE 96 U/L (45-117); BUN 9 mg/dl (7-24); CHLORIDE 108 mmol/L (98-107); CREATININE 0.69 mg/dL (0.55-1.02); POTASSIUM 3.6 mmol/L (3.5-5.1); SGOT/AST 8 IU/L (3-35); SGPT/ALT 29 U/L (12-78); SODIUM 141 mmol/L (136-145); TOTAL PROTEIN 7.1 gm/dL (6.4-8.2)
[2018-01-11 16:24] LABS: TROPONIN I < 0.015 ng/ml (<0.045)
[2018-01-11] MEDS ORDERED: ALLERGY10 M1 PO (18:11)
[2018-01-11] MEDS ORDERED: PROAIR HFA8.5 GM INH (18:16)
[2018-01-12] VITALS: BP 133/53
[2018-01-12 05:27] LABS: BILIRUBIN NEGATIVE (NEGATIVE); BLOOD 3+ (NEGATIVE); CLARITY SL CLOUDY (CLEAR); COLOR YELLOW (YELLOW); GLUCOSE 2+ (NEGATIVE); KETONE NEGATIVE (NEGATIVE); LEUKO ESTERASE NEGATIVE (NEGATIVE); NITRITE NEGATIVE (NEGATIVE); PH 5.5 (5.0-9.0); SPECIFIC GRAVITY 1.025 (1.005-1.030); UROBILINOGEN 0.2 E.U./dl (0.2-1.0)
[2018-01-12 05:37] LABS: BACTERIA TRACE; EPITHELIAL CELLS 16-20; RBC 21-30 rbc/hpf (0-2)
[2018-01-12 06:34] LABS: HEMATOCRIT 36.5 % (37.0-47.0); HEMOGLOBIN 11.7 g/dl (12.0-16.0); MEAN CELL VOLUME 91.5 fl (81.0-99.0); MEAN CORPUSCULAR HGB 29.3 pg (27.0-31.0); MEAN CORPUSCULAR HGB CONC 32.1 g/dl (33.0-37.0); MEAN PLATELET VOLUME 9.3 fl (9.6-12.3); PLATELET COUNT AUTOMATED 256 10*3/uL (130-400); RED BLOOD COUNT 3.99 10*6/uL (4.10-5.10); RED CELL DISTRI WIDTH 14.5 % (0-14.5); WHITE BLOOD COUNT 13.1 10*3/uL (4.8-10.8)
[2018-01-12 07:06] LABS: ALBUMIN 3.2 gm/dl (3.1-4.5); ALKALINE PHOSPHATASE 78 U/L (45-117); BUN 10 mg/dl (7-24); CHLORIDE 109 mmol/L (98-107); CHOLESTEROL 179 mg/dL (<200); CREATININE 0.63 mg/dL (0.55-1.02); FREE T4 1.06 ng/dl (0.76-1.46); HDL CHOLESTEROL 72 mg/dl (40-60); LDL CHOLESTEROL 99 mg/dL (9-159); PHOSPHOROUS 1.6 mg/dL (2.5-4.9); SGOT/AST 8 IU/L (3-35); SGPT/ALT 26 U/L (12-78); SODIUM 140 mmol/L (136-145); TOTAL PROTEIN 6.4 gm/dL (6.4-8.2); TRIGLYCERIDES 42 mg/dl (<150); VLDL CHOLESTEROL 8 mg/dL (6-40)
[2018-01-12 07:07] LABS: PLATELET SUFFICIENCY NORMAL (NORMAL); TOTAL CELLS COUNTED 100 #CELLS
[2018-01-12 07:11] LABS: THYROID STIM HORMONE (HS) 0.427 uIU/ml (0.358-4.75)
[2018-01-12 07:15] VITALS: BP 118/70
[2018-01-12 08:00] VITALS: BP 122/60
[2018-01-12 12:00] VITALS: BP 120/66
[2018-01-12] MEDS ORDERED: PREDNISONE10 MG PO (12:34)
[2018-01-12] MEDS ORDERED: MUCINEX ER600 MG PO (12:34)
[2018-01-12] MEDS ORDERED: VITAMIN D-32000 UNIT PO (12:34)
== END 2018-01-12 13:00 | disposition home or self-care (01) | DRG 871 ==
LOC: ED 15:04 → EDHOLD 17:27 → 5E 17:34
PROVIDERS: Internal Medicine; Nurse Practitioner
DX: A40.1 Sepsis due to streptococcus, group B (principal); J15.211 Pneumonia due to Methicillin susceptible Staphylococcus aureus; E66.9 Obesity, unspecified; D64.9 Anemia, unspecified; E55.9 Vitamin D deficiency, unspecified; J45.901 Unspecified asthma with (acute) exacerbation; R73.9 Hyperglycemia, unspecified; Z71.6 Tobacco abuse counseling; Z72.0 Tobacco use; Z68.38 Body mass index [BMI] 38.0-38.9, adult

== ENCOUNTER 2018-02-11 22:55 | Emergency (ER) | payer SELFPAY ==
[~2018-02-11] VITALS: Wt 83.0 kg
[~2018-02-11 22:55] MED LIST changes: +ALLERGY10 M1 PO; +MUCINEX ER600 MG PO; +PROAIR HFA8.5 GM INH; +VITAMIN D-32000 UNIT PO
[2018-02-11 23:39] LABS: BASO # 0.1 10*3/uL (0.0-0.1); BASO % 0.7 % (0.0-1.0); EOS # 0.7 10*3/uL (0.0-0.4); EOS % 4.4 % (1.0-4.0); HEMATOCRIT 40.9 % (37.0-47.0); HEMOGLOBIN 13.6 g/dl (12.0-16.0); LYMPH # 2.3 10*3/uL (1.3-4.4); LYMPH % 15.2 % (27.0-41.0); MEAN CELL VOLUME 87.6 fl (81.0-99.0); MEAN CORPUSCULAR HGB 29.1 pg (27.0-31.0); MEAN CORPUSCULAR HGB CONC 33.3 g/dl (33.0-37.0); MEAN PLATELET VOLUME 9.6 fl (9.6-12.3); MONO # 0.9 10*3/uL (0.1-1.0); MONO % 5.5 % (3.0-9.0); NEUT # 11.4 10*3/uL (2.3-7.9); NEUT % 73.9 % (47.0-73.0); PLATELET COUNT AUTOMATED 384 10*3/uL (130-400); RED BLOOD COUNT 4.67 10*6/uL (4.10-5.10); RED CELL DISTRI WIDTH 14.1 % (0-14.5); WHITE BLOOD COUNT 15.4 10*3/uL (4.8-10.8)
[2018-02-11 23:54] LABS: ALBUMIN 3.7 gm/dl (3.1-4.5); ALKALINE PHOSPHATASE 104 U/L (45-117); BUN 8 mg/dl (7-24); CHLORIDE 109 mmol/L (98-107); POTASSIUM 3.5 mmol/L (3.5-5.1); SGOT/AST 12 IU/L (3-35); SGPT/ALT 23 U/L (12-78); SODIUM 142 mmol/L (136-145); TOTAL PROTEIN 7.5 gm/dL (6.4-8.2)
[2018-02-11 23:55] LABS: TROPONIN I < 0.015 ng/ml (<0.045)
[2018-02-12] MEDS ORDERED: ZITHROMAX250 MG PO (01:17)
[2018-02-12] MEDS ORDERED: ALBUTEROL2.5 MG/0.5 INH (01:17)
[2018-02-12] MEDS ORDERED: DELTASONE20 M1 PO (01:17)
== END 2018-02-12 01:25 | disposition left against medical advice (07) ==
LOC: ED 22:55
PROVIDERS: Physician Assistant
DX: R06.02 Shortness of breath (principal); R06.2 Wheezing; R05 Cough; J45.909 Unspecified asthma, uncomplicated; F17.200 Nicotine dependence, unspecified, uncomplicated; Z79.899 Other long term (current) drug therapy

== ENCOUNTER 2018-03-01 05:04 | Inpatient (IN) | payer SELFPAY ==
[~2018-03-01] VITALS: Ht 152.4 cm; Wt 91.7 kg
[2018-03-01] VITALS (7 sets, daily range): BP systolic 121–137; BP diastolic 60–90
--- NOTE | ~2018-03-01 | CON ---
[place], [place] REPORT OF CONSULTATION [id number] UNIT #: [id number] ROOM: 408 DOCTOR: SHAHANA GAR MDTAPAN BIRTHDATE: [birth year] DOS: 03/03/2018 PULMONARY CONSULTATION, EVALUATION, AND MANAGEMENT CONSULTATION REQUESTED BY: Hospitalist Service. REASON FOR CONSULTATION: Assessment of acute exacerbation of bronchial asthma. HISTORY OF PRESENT ILLNESS: A 32-year-old white female who was admitted to the hospital on 03/01/2018 under the care of the hospitalist service. The patient has been known to me with past history of tobacco use and recurrent attacks of bronchial asthma. The patient presented to the Emergency Room on the date of 03/01/2018. She has been complaining of increased shortness of breath occurring for the past 2 to 3 days. The symptoms have been noted gradually worsened. She has used her inhaler and stated that the symptoms did not resolve. The patient denies symptoms of chest pain. Denies symptoms of hemoptysis. Wheezing was reported with tightness in the chest. Cough has been noted with minimal sputum expectoration. The patient has been admitted to the hospital for further medical management at this time. The influenza A and B nasal washing antigens were noted negative. She has been receiving corticosteroids, bronchodilators, and other medical treatment at this time. REVIEW OF SYSTEMS: The remaining systems for this patient reviewed is as follows: CONSTITUTIONAL: Fatigue and tiredness noted on admission, which is improving. There were no chills. EYES: Denies burning, redness, or tenderness. EAR, NOSE, AND THROAT: Denies sore throat, hoarseness, otalgia, postnasal drainage or epistaxis. CARDIOVASCULAR: Denies anginal pain, edema or pain in the lower extremities. GASTROINTESTINAL: No dysphagia, nausea, vomiting, diarrhea, abdominal pain, hematemesis, melena or hematochezia. SKIN: Denies any lesions or rashes. MUSCULOSKELETAL: No acute joint pain, redness or tenderness. Remaining systems were reviewed for the patient, they were noted all negative. The past medical history for this patient, surgical history, social history, and family history reviewed with the patient and it remains unchanged since my consultation of December 2017 except that the patient stated that she has not been smoking cigarettes since January 2018. MEDICATIONS: The current medications administered were noted use of Zyrtec, vitamin D, Protonix, Dulera, IV Solu-Medrol 60 mg q. 8 hours, Tessalon Perles, temazepam, and DuoNeb. DRUG ALLERGY HISTORY: The patient was noted as no known allergies to the drugs. PHYSICAL EXAMINATION: GENERAL: This is a 32-year-old white female, currently sitting comfortably in [place], [place] REPORT OF CONSULTATION NAME: DAVID CRUZ UNIT #: [id number] ROOM: [facility] DOCTOR: TAPAN FLOWER MD BIRTHDATE: [birth year] the bed without any acute distress at the time of the assessment. VITAL SIGNS: Height was recorded by the nursing staff for this patient at this time 5 feet, weight of 202 pounds, BMI 39.4. HEENT: Showed head was atraumatic, eyes nonicterus. NECK: Supple. CARDIOVASCULAR: S1, S2 are audible. LUNGS: Noted [id number] decreased breath sounds without any wheezing or crackles at this time. ABDOMEN: Soft with moderate obesity. Bowel sounds present without tenderness. EXTREMITIES: Without any acute edema, clubbing or cyanosis. CENTRAL NERVOUS SYSTEM: Cranial nerves 2-12 intact. MUSCULOSKELETAL: Without any acute deformities. SKIN: No lesions or rashes. LABORATORY AND IMAGING DATA: Lactic acid noted normal on admission on 03/01/2018. WBC count 14.3, hemoglobin and hematocrit normal, platelet count was normal. Influenza A and B nasal washing antigen negative. CBC this morning, WBC count 20.6, remaining CBC normal, 97% segmented neutrophils. BMP: Glucose 140, BUN and creatinine were normal. Chest x-ray one view, which was done on this admission, did not show any acute pulmonary infiltration. IMPRESSION: 1. Recurrent exacerbation of acute bronchial asthma. 2. Hyperglycemia and leukocytosis related to corticosteroids. Possibility of viral syndrome on the patient certainly cannot be excluded. Not sure that the patient has absolutely stopped smoking cigarettes or still smoking cigarettes at this time resulting in acute exacerbation of bronchial asthma. 3. Chronic obesity. PLAN OF MANAGEMENT: The patient could be considered for home discharge. She will be assessed for home oxygen need, if necessary to be provided; otherwise, tapering dose of prednisone as well as antibiotic to be given. Continued abstinence of tobacco use as well would be recommended. Usual care and other supportive plan of management. The assessment and management has been discussed with Dr. Ryan Delacruz personally about the patient's current assessment. TAPAN HARKINS MD CM:CONSTR:REPORT OF CONSULTATION 1507 03/04/18 0405 interface
[~2018-03-01 05:04] MED LIST changes: +ALBUTEROL2.5 MG/0.5 INH; +DELTASONE20 M1 PO; +ZITHROMAX250 MG PO
[2018-03-01 05:33] LABS: BASO # 0.1 10*3/uL (0.0-0.1); BASO % 0.8 % (0.0-1.0); EOS # 0.8 10*3/uL (0.0-0.4); EOS % 5.7 % (1.0-4.0); HEMATOCRIT 38.4 % (37.0-47.0); HEMOGLOBIN 12.4 g/dl (12.0-16.0); LYMPH # 1.5 10*3/uL (1.3-4.4); LYMPH % 10.6 % (27.0-41.0); MEAN CELL VOLUME 88.3 fl (81.0-99.0); MEAN CORPUSCULAR HGB 28.5 pg (27.0-31.0); MEAN CORPUSCULAR HGB CONC 32.3 g/dl (33.0-37.0); MEAN PLATELET VOLUME 9.5 fl (9.6-12.3); MONO # 0.9 10*3/uL (0.1-1.0); MONO % 6.3 % (3.0-9.0); NEUT # 10.9 10*3/uL (2.3-7.9); NEUT % 76.3 % (47.0-73.0); PLATELET COUNT AUTOMATED 340 10*3/uL (130-400); RED BLOOD COUNT 4.35 10*6/uL (4.10-5.10); RED CELL DISTRI WIDTH 14.3 % (0-14.5); WHITE BLOOD COUNT 14.3 10*3/uL (4.8-10.8)
[2018-03-01 05:50] LABS: ALBUMIN 3.8 gm/dl (3.1-4.5); ALKALINE PHOSPHATASE 95 U/L (45-117); BUN 9 mg/dl (7-24); CHLORIDE 109 mmol/L (98-107); CREATININE 0.85 mg/dL (0.55-1.02); POTASSIUM 3.7 mmol/L (3.5-5.1); SGOT/AST 13 IU/L (3-35); SGPT/ALT 21 U/L (12-78); SODIUM 142 mmol/L (136-145)
[2018-03-02] VITALS: BP 115/52
[2018-03-02 07:03] LABS: HEMOGLOBIN 12.4 g/dl (12.0-16.0); MEAN CELL VOLUME 87.6 fl (81.0-99.0); MEAN CORPUSCULAR HGB 28.6 pg (27.0-31.0); MEAN CORPUSCULAR HGB CONC 32.6 g/dl (33.0-37.0); MEAN PLATELET VOLUME 9.6 fl (9.6-12.3); PLATELET COUNT AUTOMATED 375 10*3/uL (130-400); RED BLOOD COUNT 4.34 10*6/uL (4.10-5.10); RED CELL DISTRI WIDTH 14.5 % (0-14.5); WHITE BLOOD COUNT 20.6 10*3/uL (4.8-10.8)
[2018-03-02 07:22] LABS: BUN 9 mg/dl (7-24); CHLORIDE 108 mmol/L (98-107); CREATININE 0.76 mg/dL (0.55-1.02); POTASSIUM 4.1 mmol/L (3.5-5.1); SODIUM 139 mmol/L (136-145)
[2018-03-02 07:23] LABS: TOTAL CELLS COUNTED 100 #CELLS
[2018-03-02 07:24] LABS: PLATELET SUFFICIENCY NORMAL (NORMAL)
[2018-03-02 08:00] VITALS: BP 129/51
[2018-03-02 12:00] VITALS: BP 121/54
[2018-03-02 16:00] VITALS: BP 130/60
[2018-03-02 20:00] VITALS: BP 134/59
[2018-03-03] VITALS: BP 125/61
[2018-03-03 08:00] VITALS: BP 124/66; BP 124/67
[2018-03-03 12:00] VITALS: BP 128/60
[2018-03-03] MEDS ORDERED: DULE1ARO1 INH (12:18)
[2018-03-03] MEDS ORDERED: PREDNISONE10 MG PO (12:18)
== END 2018-03-03 13:54 | disposition home or self-care (01) | DRG 202 ==
LOC: ED 05:04 → EDHOLD 06:35 → 4E 06:35 → EDHOLD 07:02 → 4E 07:26
PROVIDERS: Student in an Organized Health Care Education/Training Program
DX: J45.901 Unspecified asthma with (acute) exacerbation (principal); R65.10 Systemic inflammatory response syndrome (SIRS) of non-infectious origin without acute organ dysfunction; R00.0 Tachycardia, unspecified; D72.829 Elevated white blood cell count, unspecified; R73.9 Hyperglycemia, unspecified; E55.9 Vitamin D deficiency, unspecified; E66.9 Obesity, unspecified; Z87.891 Personal history of nicotine dependence; Z84.89 Family history of other specified conditions; Z79.899 Other long term (current) drug therapy; Z68.39 Body mass index [BMI] 39.0-39.9, adult

== ENCOUNTER → 2018-03-21 | Outpatient (CLI) | payer SELFPAY ==
[~2018-03-21] MED LIST changes: +DULE1ARO1 INH
== END | disposition home or self-care (01) ==
LOC: RESCLI 03-17 14:37
DX: J45.909 Unspecified asthma, uncomplicated (principal)

== ENCOUNTER 2018-06-07 11:46 | Emergency (ER) | payer OTHER ==
[~2018-06-07] VITALS: Ht 152.4 cm; Wt 90.7 kg
[2018-06-07] MEDS ORDERED: PREDNISONE50 MG PO (13:32)
== END 2018-06-07 13:41 | disposition home or self-care (01) ==
LOC: ED 11:46
DX: J45.901 Unspecified asthma with (acute) exacerbation (principal); E66.9 Obesity, unspecified; Z79.899 Other long term (current) drug therapy; Z68.39 Body mass index [BMI] 39.0-39.9, adult; Z87.891 Personal history of nicotine dependence

== ENCOUNTER → 2018-06-16 | Outpatient (CLI) | payer OTHER | END | disposition home or self-care (01) | LOC: RESCLI 03:35 | DX: Z01.419 Encounter for gynecological examination (general) (routine) without abnormal findings (principal); F17.210 Nicotine dependence, cigarettes, uncomplicated; Z88.8 Allergy status to other drugs, medicaments and biological substances ==

== ENCOUNTER → 2018-09-27 | Outpatient (CLI) | payer OTHER | END | disposition home or self-care (01) | LOC: RESCLI 02:30 | DX: F32.9 Major depressive disorder, single episode, unspecified (principal); E66.01 Morbid (severe) obesity due to excess calories; J45.20 Mild intermittent asthma, uncomplicated; J30.2 Other seasonal allergic rhinitis; Z79.899 Other long term (current) drug therapy ==

== ENCOUNTER → 2018-10-24 | Outpatient (CLI) | payer OTHER ==
[2018-10-24 09:20] LABS: BASO # 0.1 10*3/uL (0.0-0.1); BASO % 0.8 % (0.0-1.0); EOS # 0.5 10*3/uL (0.0-0.4); EOS % 4.6 % (1.0-4.0); HEMATOCRIT 39.7 % (37.0-47.0); HEMOGLOBIN 13.1 g/dl (12.0-16.0); LYMPH # 1.8 10*3/uL (1.3-4.4); LYMPH % 18.2 % (27.0-41.0); MEAN CELL VOLUME 87.4 fl (81.0-99.0); MEAN CORPUSCULAR HGB 28.9 pg (27.0-31.0); MEAN PLATELET VOLUME 10.1 fl (9.6-12.3); MONO # 0.7 10*3/uL (0.1-1.0); NEUT % 68.9 % (47.0-73.0); PLATELET COUNT AUTOMATED 326 10*3/uL (130-400); RED BLOOD COUNT 4.54 10*6/uL (4.10-5.10); RED CELL DISTRI WIDTH 14.1 % (0-14.5); WHITE BLOOD COUNT 10.1 10*3/uL (4.8-10.8)
[2018-10-24 09:27] LABS: CHLORIDE 111 mmol/L (98-107); SODIUM 140 mmol/L (136-145)
[2018-10-24 10:07] LABS: ALBUMIN 3.4 gm/dl (3.1-4.5); ALKALINE PHOSPHATASE 132 U/L (45-117); BUN 13 mg/dl (7-24); CHOLESTEROL 143 mg/dL (<200); CREATININE 0.87 mg/dL (0.55-1.02); HDL CHOLESTEROL 39 mg/dl (40-60); LDL CHOLESTEROL 90 mg/dL (9-159); SGOT/AST 15 IU/L (3-35); SGPT/ALT 24 U/L (12-78); TRIGLYCERIDES 72 mg/dl (<150); VLDL CHOLESTEROL 14 mg/dL (6-40)
[2018-10-24 11:52] LABS: VITAMIN D, 25-HYDROXY 49.3 ng/mL (30-100)
== END | disposition home or self-care (01) ==
LOC: LAB 08:37
PROVIDERS: Internal Medicine
DX: F32.9 Major depressive disorder, single episode, unspecified (principal); E66.01 Morbid (severe) obesity due to excess calories

== ENCOUNTER → 2018-11-01 | Outpatient (CLI) | payer OTHER | END | disposition home or self-care (01) | LOC: RESCLI 04:53 | DX: F32.9 Major depressive disorder, single episode, unspecified (principal); E66.01 Morbid (severe) obesity due to excess calories; J45.20 Mild intermittent asthma, uncomplicated; J30.2 Other seasonal allergic rhinitis; R73.03 Prediabetes; Z79.899 Other long term (current) drug therapy; Z91.09 Other allergy status, other than to drugs and biological substances ==

== ENCOUNTER → 2019-02-15 | Outpatient (CLI) | payer OTHER | END | disposition home or self-care (01) | LOC: RESCLI 01:48 | DX: E66.01 Morbid (severe) obesity due to excess calories (principal); J45.20 Mild intermittent asthma, uncomplicated; J30.2 Other seasonal allergic rhinitis; F32.9 Major depressive disorder, single episode, unspecified; R73.03 Prediabetes; Z79.899 Other long term (current) drug therapy; Z87.891 Personal history of nicotine dependence; Z88.8 Allergy status to other drugs, medicaments and biological substances ==

== ENCOUNTER → 2019-04-27 | Outpatient (CLI) | payer OTHER | END | disposition home or self-care (01) | LOC: RESCLI 00:53 | DX: E66.01 Morbid (severe) obesity due to excess calories (principal); F32.9 Major depressive disorder, single episode, unspecified; J30.2 Other seasonal allergic rhinitis; J45.20 Mild intermittent asthma, uncomplicated; Z87.891 Personal history of nicotine dependence; Z79.899 Other long term (current) drug therapy ==

== ENCOUNTER → 2019-07-18 | Outpatient (CLI) | payer OTHER | END | disposition home or self-care (01) | LOC: RESCLI 00:42 | DX: F32.9 Major depressive disorder, single episode, unspecified (principal); J30.2 Other seasonal allergic rhinitis; E66.01 Morbid (severe) obesity due to excess calories; J45.20 Mild intermittent asthma, uncomplicated; R51 Headache; Z87.891 Personal history of nicotine dependence ==

== ENCOUNTER → 2019-10-31 | Outpatient (CLI) | payer OTHER | END | disposition home or self-care (01) | LOC: RESCLI 01:25 | DX: J45.20 Mild intermittent asthma, uncomplicated (principal); J30.2 Other seasonal allergic rhinitis; E66.01 Morbid (severe) obesity due to excess calories; R53.82 Chronic fatigue, unspecified; H66.90 Otitis media, unspecified, unspecified ear; F32.9 Major depressive disorder, single episode, unspecified; Z79.899 Other long term (current) drug therapy; Z87.891 Personal history of nicotine dependence ==

== ENCOUNTER 2019-12-16 11:58 | Emergency (ER) | payer OTHER ==
[~2019-12-16] VITALS: Ht 152.4 cm; Wt 90.7 kg
[2019-12-16] MEDS ORDERED: PREDNISONE20 M1 PO (14:24)
[2019-12-16] MEDS ORDERED: ROBAXIN-750750 MG PO (14:24)
== END 2019-12-16 14:29 | disposition home or self-care (01) ==
LOC: ED 11:58
DX: M54.41 Lumbago with sciatica, right side (principal); J45.909 Unspecified asthma, uncomplicated; Z79.899 Other long term (current) drug therapy; Z87.891 Personal history of nicotine dependence

== ENCOUNTER 2020-04-27 13:46 | Emergency (ER) | payer OTHER ==
[~2020-04-27] VITALS: Ht 152.4 cm; Wt 90.7 kg
[~2020-04-27 13:46] MED LIST changes: +PREDNISONE20 M1 PO; +ROBAXIN-750750 MG PO
[2020-04-27] MEDS ORDERED: PREDNISONE20 M1 PO (16:28)
[2020-04-27] MEDS ORDERED: ROBAXIN-750750 MG PO (16:28)
== END 2020-04-27 17:01 | disposition home or self-care (01) ==
LOC: ED 13:46
DX: M54.5 Low back pain (principal); G89.29 Other chronic pain; Z79.899 Other long term (current) drug therapy

== ENCOUNTER → 2020-07-15 | Outpatient (CLI) | payer OTHER | END | disposition home or self-care (01) | LOC: RESCLI 00:59 | PROVIDERS: ATTEND Internal Medicine Nephrology | DX: R53.82 Chronic fatigue, unspecified (principal); E66.01 Morbid (severe) obesity due to excess calories; J45.20 Mild intermittent asthma, uncomplicated; F32.9 Major depressive disorder, single episode, unspecified; J30.2 Other seasonal allergic rhinitis; G56.03 Carpal tunnel syndrome, bilateral upper limbs; Z68.44 Body mass index [BMI] 60.0-69.9, adult; Z79.899 Other long term (current) drug therapy; Z87.891 Personal history of nicotine dependence ==

== ENCOUNTER → 2020-08-19 | Outpatient (CLI) | payer OTHER ==
[~2020-08-19] MED LIST changes: +SEPTDS PO
[2020-08-19 14:23] LABS: BILIRUBIN Negative (Negative); BLOOD Negative (Negative); CLARITY Cloudy (Clear); COLOR Dark Yellow (Yellow); GLUCOSE Negative (Negative); KETONE Negative (Negative); LEUKO ESTERASE 2+ (Negative); NITRITE Positive (Negative)
[2020-08-19 14:51] LABS: BACTERIA 1+
== END | disposition home or self-care (01) ==
LOC: RESCLI 02:54
PROVIDERS: Student in an Organized Health Care Education/Training Program; ATTEND Internal Medicine Nephrology
DX: N39.0 Urinary tract infection, site not specified (principal); F32.9 Major depressive disorder, single episode, unspecified; J45.20 Mild intermittent asthma, uncomplicated; R53.82 Chronic fatigue, unspecified; J30.2 Other seasonal allergic rhinitis; Z68.44 Body mass index [BMI] 60.0-69.9, adult; Z79.899 Other long term (current) drug therapy; Z87.891 Personal history of nicotine dependence; Z98.890 Other specified postprocedural states

== ENCOUNTER 2020-08-23 07:28 | Emergency (ER) | payer OTHER ==
[~2020-08-23] VITALS: Wt 98.0 kg
[~2020-08-23 07:28] MED LIST changes: -SEPTDS PO
[2020-08-23 08:43] LABS: BILIRUBIN Negative (Negative); BLOOD Negative (Negative); CLARITY Turbid (Clear); COLOR Yellow (Yellow); GLUCOSE Negative (Negative); KETONE Negative (Negative); LEUKO ESTERASE 2+ (Negative); NITRITE Negative (Negative); SPECIFIC GRAVITY 1.015 (1.001-1.030); UROBILINOGEN 0.2 E.U./dl (0.0-1.0)
[2020-08-23 08:53] LABS: BASO # 0.1 10*3/uL (0.0-0.1); BASO % 0.8 % (0.0-1.0); EOS # 0.2 10*3/uL (0.0-0.4); EOS % 2.2 % (1.0-4.0); HEMATOCRIT 38.9 % (37.0-47.0); LYMPH # 1.6 10*3/uL (1.3-4.4); LYMPH % 17.5 % (27.0-41.0); MEAN CELL VOLUME 86.8 fl (81.0-99.0); MEAN CORPUSCULAR HGB 28.1 pg (27.0-31.0); MEAN CORPUSCULAR HGB CONC 32.4 g/dl (33.0-37.0); MEAN PLATELET VOLUME 9.8 fl (9.6-12.3); MONO # 0.5 10*3/uL (0.1-1.0); MONO % 5.5 % (3.0-9.0); NEUT # 6.7 10*3/uL (2.3-7.9); NEUT % 73.7 % (47.0-73.0); PLATELET COUNT AUTOMATED 300 10*3/uL (130-400); RED BLOOD COUNT 4.48 10*6/uL (4.10-5.10); RED CELL DISTRI WIDTH 13.2 % (0-14.5); WHITE BLOOD COUNT 9.1 10*3/uL (4.8-10.8)
[2020-08-23 09:07] LABS: ALBUMIN 3.9 gm/dl (3.1-4.5); ALKALINE PHOSPHATASE 111 U/L (45-117); BUN 14 mg/dl (7-24); CHLORIDE 111 mmol/L (98-107); CREATININE 1.03 mg/dL (0.55-1.02); POTASSIUM 3.5 mmol/L (3.5-5.1); SGOT/AST 4 IU/L (3-35); SGPT/ALT 20 U/L (12-78); SODIUM 141 mmol/L (136-145); TOTAL PROTEIN 7.2 gm/dL (6.4-8.2)
[2020-08-23 09:09] LABS: B-hCG (QUALITATIVE) NEGATIVE (NEGATIVE)
[2020-08-23 09:17] LABS: BACTERIA 3+; EPITHELIAL CELLS 21-30; WBC 16-20 wbc/hpf (0-5)
[2020-08-23 09:18] LABS: YEAST 1+
[2020-08-23] MEDS ORDERED: SEPTDS PO (11:26)
== END 2020-08-23 13:09 | disposition home or self-care (01) ==
LOC: ED 07:28
PROVIDERS: Internal Medicine
DX: N39.0 Urinary tract infection, site not specified (principal); Z79.899 Other long term (current) drug therapy

== ENCOUNTER → 2020-08-26 | Outpatient (CLI) | payer OTHER ==
[~2020-08-26] MED LIST changes: +SEPTDS PO
== END | disposition home or self-care (01) ==
LOC: RESCLI
PROVIDERS: ATTEND Internal Medicine Nephrology
DX: N39.0 Urinary tract infection, site not specified (principal); F32.9 Major depressive disorder, single episode, unspecified; J45.20 Mild intermittent asthma, uncomplicated; R53.82 Chronic fatigue, unspecified; Z30.42 Encounter for surveillance of injectable contraceptive; Z79.899 Other long term (current) drug therapy; Z98.890 Other specified postprocedural states; Z87.891 Personal history of nicotine dependence

== ENCOUNTER → 2021-03-06 | Outpatient (CLI) | payer OTHER | END | disposition home or self-care (01) | LOC: RESCLI 00:25 | PROVIDERS: ATTEND Internal Medicine Nephrology | DX: Z30.42 Encounter for surveillance of injectable contraceptive (principal); F32.9 Major depressive disorder, single episode, unspecified; J45.20 Mild intermittent asthma, uncomplicated; R53.82 Chronic fatigue, unspecified; Z79.899 Other long term (current) drug therapy; Z98.890 Other specified postprocedural states; Z87.891 Personal history of nicotine dependence ==

== ENCOUNTER → 2022-04-27 | Outpatient (CLI) | payer OTHER ==
[2022-04-27 10:16] LABS: BASO # 0.1 10*3/uL (0.0-0.1); BASO % 0.5 % (0.0-1.0); EOS # 0.4 10*3/uL (0.0-0.4); EOS % 3.1 % (1.0-4.0); HEMATOCRIT 40.1 % (37.0-47.0); LYMPH # 1.5 10*3/uL (1.3-4.4); MEAN CELL VOLUME 87.4 fl (81.0-99.0); MEAN CORPUSCULAR HGB 29.2 pg (27.0-31.0); MEAN CORPUSCULAR HGB CONC 33.4 g/dl (33.0-37.0); MEAN PLATELET VOLUME 9.7 fl (9.6-12.3); MONO # 0.6 10*3/uL (0.1-1.0); MONO % 4.9 % (3.0-9.0); NEUT % 78.2 % (47.0-73.0); PLATELET COUNT AUTOMATED 286 10*3/uL (130-400); RED BLOOD COUNT 4.59 10*6/uL (4.10-5.10); WHITE BLOOD COUNT 11.5 10*3/uL (4.8-10.8)
[2022-04-27 10:35] LABS: BUN 12 mg/dl (7-24); CHLORIDE 114 mmol/L (98-107); CREATININE 0.93 mg/dL (0.55-1.02); POTASSIUM 3.8 mmol/L (3.5-5.1); SODIUM 142 mmol/L (136-145)
[2022-04-27 10:47] LABS: ALKALINE PHOSPHATASE 116 U/L (45-117); SGOT/AST 14 IU/L (3-35); SGPT/ALT 19 U/L (12-78)
== END | disposition home or self-care (01) ==
LOC: RESCLI 09:50
PROVIDERS: Internal Medicine; ATTEND Internal Medicine
DX: F32.9 Major depressive disorder, single episode, unspecified (principal); J45.20 Mild intermittent asthma, uncomplicated; G47.00 Insomnia, unspecified; R53.82 Chronic fatigue, unspecified; E66.9 Obesity, unspecified; Z30.42 Encounter for surveillance of injectable contraceptive; Z79.899 Other long term (current) drug therapy; Z88.8 Allergy status to other drugs, medicaments and biological substances

== ENCOUNTER 2022-05-23 15:09 | Emergency (ER) | payer OTHER ==
[~2022-05-23] VITALS: Ht 152.4 cm; Wt 104.3 kg
[2022-05-23] MEDS ORDERED: CYCLOBENZAPRINE10 MG PO (17:40)
[2022-05-23] MEDS ORDERED: NAPROSYN500 MG PO (17:40)
== END 2022-05-23 17:55 | disposition home or self-care (01) ==
LOC: ED 15:09
DX: S39.012A Strain of muscle, fascia and tendon of lower back, initial encounter (principal); M54.41 Lumbago with sciatica, right side; Z87.891 Personal history of nicotine dependence; Z79.899 Other long term (current) drug therapy; X50.1XXA Overexertion from prolonged static or awkward postures, initial encounter; Y93.89 Activity, other specified; Y92.69 Other specified industrial and construction area as the place of occurrence of the external cause; Y99.9 Unspecified external cause status

== ENCOUNTER → 2022-06-24 | Outpatient (CLI) | payer OTHER ==
[~2022-06-24] MED LIST changes: +CYCLOBENZAPRINE10 MG PO; +NAPROSYN500 MG PO
== END | disposition home or self-care (01) ==
LOC: RESCLI 00:30
PROVIDERS: ATTEND Family Medicine
DX: J45.20 Mild intermittent asthma, uncomplicated (principal); F32.9 Major depressive disorder, single episode, unspecified; Z30.42 Encounter for surveillance of injectable contraceptive; R53.82 Chronic fatigue, unspecified; Z87.891 Personal history of nicotine dependence; Z79.899 Other long term (current) drug therapy

== ENCOUNTER → 2022-12-23 | Outpatient (CLI) | payer OTHER ==
[2022-12-23 09:50] LABS: BASO # 0.1 10*3/uL (0.0-0.1); BASO % 0.8 % (0.0-1.0); EOS # 0.3 10*3/uL (0.0-0.4); EOS % 3.6 % (1.0-4.0); HEMATOCRIT 41.8 % (37.0-47.0); LYMPH # 1.3 10*3/uL (1.3-4.4); LYMPH % 17.5 % (27.0-41.0); MEAN CELL VOLUME 89.7 fl (81.0-99.0); MEAN CORPUSCULAR HGB 29.4 pg (27.0-31.0); MEAN CORPUSCULAR HGB CONC 32.8 g/dl (33.0-37.0); MEAN PLATELET VOLUME 9.5 fl (9.6-12.3); MONO # 0.5 10*3/uL (0.1-1.0); MONO % 6.8 % (3.0-9.0); NEUT # 5.4 10*3/uL (2.3-7.9); PLATELET COUNT AUTOMATED 278 10*3/uL (130-400); RED BLOOD COUNT 4.66 10*6/uL (4.10-5.10); RED CELL DISTRI WIDTH 13.8 % (0-14.5); WHITE BLOOD COUNT 7.5 10*3/uL (4.8-10.8)
[2022-12-23 10:10] LABS: ALKALINE PHOSPHATASE 86 U/L (46-116); BUN 11 mg/dl (9-23); CHLORIDE 110 mmol/L (98-107); SGPT/ALT 18 U/L (10-49); TOTAL PROTEIN 6.4 gm/dL (6.0-8.0)
[2022-12-23 10:48] LABS: VITAMIN D, 25-HYDROXY 16.9 ng/mL (30-100)
== END | disposition home or self-care (01) ==
LOC: RESCLI 03:54
PROVIDERS: Internal Medicine; ATTEND Internal Medicine
DX: R51.9 Headache, unspecified (principal); I10 Essential (primary) hypertension; F41.9 Anxiety disorder, unspecified; J45.20 Mild intermittent asthma, uncomplicated; R53.82 Chronic fatigue, unspecified; Z30.42 Encounter for surveillance of injectable contraceptive; F32.9 Major depressive disorder, single episode, unspecified; E55.9 Vitamin D deficiency, unspecified; Z88.8 Allergy status to other drugs, medicaments and biological substances; Z98.890 Other specified postprocedural states; Z79.899 Other long term (current) drug therapy

== ENCOUNTER → 2022-12-31 | Outpatient (CLI) | payer OTHER | END | disposition home or self-care (01) | LOC: MRI 00:39 | PROVIDERS: ATTEND Student in an Organized Health Care Education/Training Program | DX: R51.9 Headache, unspecified (principal) ==

== ENCOUNTER → 2023-01-27 | Outpatient (CLI) | payer OTHER | END | disposition home or self-care (01) | LOC: RESCLI 01:44 | PROVIDERS: ATTEND Student in an Organized Health Care Education/Training Program | DX: G43.909 Migraine, unspecified, not intractable, without status migrainosus (principal); J45.909 Unspecified asthma, uncomplicated; R53.82 Chronic fatigue, unspecified; J45.20 Mild intermittent asthma, uncomplicated; Z30.42 Encounter for surveillance of injectable contraceptive; F32.9 Major depressive disorder, single episode, unspecified; E55.9 Vitamin D deficiency, unspecified; J02.9 Acute pharyngitis, unspecified; E66.9 Obesity, unspecified; Z78.9 Other specified health status; Z79.899 Other long term (current) drug therapy; Z98.890 Other specified postprocedural states ==

== ENCOUNTER → 2023-03-10 | Outpatient (CLI) | payer OTHER | END | disposition home or self-care (01) | LOC: RESCLI 01:30 | PROVIDERS: ATTEND Student in an Organized Health Care Education/Training Program | DX: F90.9 Attention-deficit hyperactivity disorder, unspecified type (principal); J45.901 Unspecified asthma with (acute) exacerbation; Z88.8 Allergy status to other drugs, medicaments and biological substances; Z87.891 Personal history of nicotine dependence; Z98.890 Other specified postprocedural states; Z79.899 Other long term (current) drug therapy ==

== ENCOUNTER → 2023-04-07 | Outpatient (CLI) | payer OTHER | END | disposition home or self-care (01) | LOC: RESCLI 01:41 | PROVIDERS: ATTEND Student in an Organized Health Care Education/Training Program | DX: F90.9 Attention-deficit hyperactivity disorder, unspecified type (principal); J45.20 Mild intermittent asthma, uncomplicated; F32.9 Major depressive disorder, single episode, unspecified; E55.9 Vitamin D deficiency, unspecified; R53.82 Chronic fatigue, unspecified; G43.909 Migraine, unspecified, not intractable, without status migrainosus; Z30.42 Encounter for surveillance of injectable contraceptive; Z98.890 Other specified postprocedural states; Z88.0 Allergy status to penicillin; Z79.899 Other long term (current) drug therapy ==

== ENCOUNTER → 2024-05-11 | Outpatient (CLI) | payer OTHER | END | disposition home or self-care (01) | LOC: ORTHO 02:40 | PROVIDERS: ATTEND Orthopaedic Surgery | DX: G56.00 Carpal tunnel syndrome, unspecified upper limb (principal) ==

== ENCOUNTER → 2024-07-11 | Day surgery (SDC) | payer OTHER ==
[2024-07-07 08:34] LABS: BUN 16 mg/dl (9-23); CHLORIDE 106 mmol/L (98-107); POTASSIUM 3.9 mmol/L (3.4-5.1)
[~2024-07-11] VITALS: Ht 152.4 cm; Wt 89.8 kg
[~2024-07-11] MED LIST changes: +BUPIVACAINE 0.5% 10 ML VIAL ONE; +Dexamethasone Sodium Phospha 4 MG/ML VIAL IV ONE; +Lactated Ringer's Solution 1,000 ML IV ONE; +Lidocaine Hydrochloride 2% 10 ML AMP IM ONE; +Lidocaine Hydrochloride 5 ML AMP ONE; +PROPOFOL 200 MG/20 ML VIAL IV ONE; +PROPRANOLOL HCL40 MG PO; +ceFAZolin sodium/sodium chlor 10 ML IV ONE
[2024-07-11 06:54] VITALS: BP 116/59
[2024-07-11 07:58] VITALS: BP 130/64
[2024-07-11 08:13] VITALS: BP 133/55
[2024-07-11 08:28] VITALS: BP 129/57
== END | disposition home or self-care (01) ==
LOC: SDC 06-30 13:15
PROVIDERS: ATTEND Orthopaedic Surgery
DX: G56.01 Carpal tunnel syndrome, right upper limb (principal); G43.909 Migraine, unspecified, not intractable, without status migrainosus; J45.901 Unspecified asthma with (acute) exacerbation; F90.9 Attention-deficit hyperactivity disorder, unspecified type; F32.A Depression, unspecified; Z87.440 Personal history of urinary (tract) infections; Z87.891 Personal history of nicotine dependence; Z98.890 Other specified postprocedural states; Z79.899 Other long term (current) drug therapy

== ENCOUNTER → 2024-12-01 | Outpatient (CLI) | payer OTHER ==
[~2024-12-01] MED LIST changes: -BUPIVACAINE 0.5% 10 ML VIAL ONE; -Dexamethasone Sodium Phospha 4 MG/ML VIAL IV ONE; -Lactated Ringer's Solution 1,000 ML IV ONE; -Lidocaine Hydrochloride 2% 10 ML AMP IM ONE; -Lidocaine Hydrochloride 5 ML AMP ONE; -PROPOFOL 200 MG/20 ML VIAL IV ONE; -ceFAZolin sodium/sodium chlor 10 ML IV ONE
[2024-12-01 08:10] LABS: BUN 14 mg/dl (9-23); CHLORIDE 109 mmol/L (98-107); POTASSIUM 3.4 mmol/L (3.4-5.1)
== END | disposition home or self-care (01) ==
LOC: LAB 07:32
PROVIDERS: ATTEND Orthopaedic Surgery
DX: G56.03 Carpal tunnel syndrome, bilateral upper limbs (principal)

== ENCOUNTER → 2024-12-07 | Day surgery (SDC) | payer OTHER ==
[~2024-12-07] VITALS: Ht 152.4 cm; Wt 90.7 kg
[~2024-12-07] MED LIST changes: +Albuterol Sulfate 1.25 MG/3 ML VIAL NEB ONE; +Albuterol Sulfate 2.5 MG/3 ML VIAL NEB ONE; +BUPIVACAINE 0.5% 30 ML IV ONE; +Dexamethasone Sodium Phospha 20 MG/5 ML VIAL IV ONE; +Ketorolac Tromethamine 30 MG/ML VIAL IV ONE; +Lactated Ringer's Solution 1,000 ML IV ONE; +Lidocaine Hydrochloride 2% 10 ML AMP IM ONE; +Lidocaine Hydrochloride 30 ML VIAL ONE; +PROPOFOL 200 MG/20 ML VIAL IV ONE; +ceFAZolin sodium/sodium chlor 10 ML IV ONE
[2024-12-07 07:10] VITALS: BP 124/79
[2024-12-07 07:52] VITALS: BP 132/66
[2024-12-07 08:03] VITALS: BP 122/77
[2024-12-07 08:18] VITALS: BP 127/78
== END | disposition home or self-care (01) ==
LOC: SDC 12-04 08:45
PROVIDERS: ATTEND Orthopaedic Surgery
DX: G56.03 Carpal tunnel syndrome, bilateral upper limbs (principal); G43.909 Migraine, unspecified, not intractable, without status migrainosus; J45.901 Unspecified asthma with (acute) exacerbation; F90.9 Attention-deficit hyperactivity disorder, unspecified type; F32.A Depression, unspecified; F10.90 Alcohol use, unspecified, uncomplicated; Z87.891 Personal history of nicotine dependence; Z98.890 Other specified postprocedural states; Z79.899 Other long term (current) drug therapy; Z83.3 Family history of diabetes mellitus

== ENCOUNTER 2025-05-19 17:03 | Emergency (ER) | payer OTHER ==
[~2025-05-19] VITALS: Ht 152.4 cm; Wt 98.0 kg
[~2025-05-19 17:03] MED LIST changes: -Albuterol Sulfate 1.25 MG/3 ML VIAL NEB ONE; -Albuterol Sulfate 2.5 MG/3 ML VIAL NEB ONE; -BUPIVACAINE 0.5% 30 ML IV ONE; -Dexamethasone Sodium Phospha 20 MG/5 ML VIAL IV ONE; -Ketorolac Tromethamine 30 MG/ML VIAL IV ONE; -Lactated Ringer's Solution 1,000 ML IV ONE; -Lidocaine Hydrochloride 2% 10 ML AMP IM ONE; -Lidocaine Hydrochloride 30 ML VIAL ONE; -PROPOFOL 200 MG/20 ML VIAL IV ONE; -ceFAZolin sodium/sodium chlor 10 ML IV ONE
[2025-05-19] MEDS ORDERED: SODIUM CHLORIDE 0.9% 1,000 ML IV ONE (17:20)
[2025-05-19] MEDS ORDERED: diphenhydrAMINE hydrochloride 50 MG/ML VIAL IV ONE (17:20)
[2025-05-19] MEDS ORDERED: Metoclopramide Hydrochloride 10 MG/2 ML VIAL IV ONE (17:20)
[2025-05-19] MEDS ORDERED: Dexamethasone Sodium Phospha 10 MG/1 ML VIAL IV ONE (19:15)
== END 2025-05-19 19:24 | disposition home or self-care (01) ==
LOC: ED 17:03
DX: G43.909 Migraine, unspecified, not intractable, without status migrainosus (principal); J45.909 Unspecified asthma, uncomplicated; F32.A Depression, unspecified; E66.9 Obesity, unspecified; Z79.899 Other long term (current) drug therapy; Z68.30 Body mass index [BMI] 30.0-30.9, adult; Z87.891 Personal history of nicotine dependence